=== PATIENT | female | born 1980 | race Caucasian/White ===

== ENCOUNTER 2018-03-23 07:15 | Inpatient (IN) | payer OTHER ==
[~2018-03-23] VITALS: Ht 149.9 cm; Wt 64.0 kg
[~2018-03-23 07:15] MED LIST: Ativan1 MG PO; CALCA500CH PO; CHLO25 PO; CIPR500 PO; CITA20 PO; DIPH50 PO; FOLI1 PO; Inderal 20 mg T20 MG PO; MULVITMIND PO; Nuvaring Vagin1 EACH VAG; PANT40 PO; Refresh Eye Dr1 EACH BOTHEYES; SPIR25 PO; THIA100 PO
[2018-03-23 07:58] LABS: BASOPHILS ABSOLUTE AUTO 0.04 K/mm3 (0.00-0.23); BASOPHILS PERCENT AUTO 1 % (0-2); EOSINOPHILS ABSOLUTE AUTO 0.05 K/mm3 (0.00-0.68); EOSINOPHILS PERCENT AUTO 1 % (0-6); Hematocrit 32.8 % (33.0-51.0); Hemoglobin 11.6 g/dL (11.5-16.0); IMMATURE GRAN ABSOLUTE AUTO 0.04 K/mm3 (0.00-0.10); IMMATURE GRAN PERCENT AUTO 1 % (0-1); LYMPHOCYTES ABSOLUTE AUTO 1.05 K/mm3 (0.84-5.20); LYMPHOCYTES PERCENT AUTO 16 % (21-46); MONOCYTES ABSOLUTE AUTO 0.49 K/mm3 (0.16-1.47); MONOCYTES PERCENT AUTO 8 % (4-13); Mean Corpuscular HGB 30.9 pg (26.0-34.0); Mean Corpuscular HGB Conc 35.4 g/dL (31.5-36.5); Mean Corpuscular Volume 87 fL (80-100); Mean Platelet Volume 9.8 fL (9.1-12.4); NEUTROPHILS PERCENT AUTO 74 % (41-73); NRBC ABSOLUTE 0.02 K/mm3 (0.00-0.02); NRBC Auto 0.3 /100 WBC (0.0-0.2); Platelet Count 73 K/mm3 (150-400); RDW Coefficient Variation 26.2 % (11.7-14.2); RDW Standard Deviation 80.7 fL (35.1-46.3); Red Blood Cell Count 3.76 M/mm3 (3.80-5.20); White Blood Cell Count 6.47 K/mm3 (4.00-11.30)
[2018-03-23 08:08] LABS: International Normalized Ratio 1.31; Prothrombin Time Results 13.3 Sec (9.7-11.5)
[2018-03-23 08:12] LABS: Alanine Aminotransfer (ALT/SGP 94 U/L (12-78); Albumin, Blood 2.3 g/dL (3.4-5.0); Albumin/Globulin Ratio 0.4 (0.8-1.8); Alk Phos 318 U/L (50-136); Anion Gap 12 mmol/L (6-16); Aspartate Aminotrans (AST/SGOT 553 U/L (12-37); Bilirubin, Total 13.7 mg/dL (0.1-1.0); Blood Urea Nitrogen 3 mg/dL (8-24); Bun/Creatinine Ratio 5.2 (12.0-20.0); CO2, Blood 25 mmol/L (21-32); Calcium, Blood 7.5 mg/dL (8.5-10.1); Chloride, Blood 102 mmol/L (98-108); Creatinine, Blood 0.57 mg/dL (0.40-1.00); Ethanol (Alcohol), Blood, Med 249 mg/dL; Globulin, Blood 5.6 g/dL (2.2-4.0); Glomerular Filtration Rate >60 (60-); Glucose, Blood 84 mg/dL (70-99); Magnesium, Blood 1.8 mg/dL (1.6-2.4); Potassium, Blood 3.4 mmol/L (3.5-5.5); Sodium, Blood 139 mmol/L (136-145); Total Protein, Blood 7.9 g/dL (6.4-8.2)
[2018-03-23 09:56] LABS: Blood, Urine Neg (Neg); Glucose Qualitative, Urine Neg (Neg); Ketones, Urine Neg (Neg); Leukocyte Esterase, Urine Neg (Neg); Nitrite, Urine Neg (Neg); Protein, Urine Neg (Neg); Urobilinogen, Urine 1+ (Normal); pH, Urine 6.5 (5.0-8.0)
[2018-03-23 10:12] LABS: Bilirubin, Urine 2+ (Neg)
[2018-03-23 10:13] LABS: Appearance, Urine Clear (Clear); Color, Urine Amber (P-Yellow)
[2018-03-23 10:15] LABS: U Amphetamine Screen Not Detected; U Barbituate Screen Not Detected; U Benzodiazapine Screen Not Detected; U Buprenorphine Screen Not Detected; U Cannabinoids Screen Not Detected; U Cocaine Screen Not Detected; U Methadone Screen Not Detected; U Methamphetamine Screen Not Detected; U Opiates Screen Not Detected; U Oxycodone Screen Not Detected; U Phencyclidine Screen Not Detected; U Propoxyphene Screen Not Detected
[2018-03-24 05:36] LABS: Hematocrit 28.7 % (33.0-51.0); Hemoglobin 9.9 g/dL (11.5-16.0); Mean Corpuscular HGB 30.5 pg (26.0-34.0); Mean Corpuscular HGB Conc 34.5 g/dL (31.5-36.5); Mean Corpuscular Volume 88 fL (80-100); Mean Platelet Volume 9.8 fL (9.1-12.4); Platelet Count 52 K/mm3 (150-400); RDW Coefficient Variation 26.3 % (11.7-14.2); RDW Standard Deviation 80.8 fL (35.1-46.3); Red Blood Cell Count 3.25 M/mm3 (3.80-5.20); White Blood Cell Count 4.26 K/mm3 (4.00-11.30)
[2018-03-24 06:02] LABS: Anion Gap 10 mmol/L (6-16); Blood Urea Nitrogen 4 mg/dL (8-24); CO2, Blood 24 mmol/L (21-32); Calcium, Blood 7.5 mg/dL (8.5-10.1); Chloride, Blood 103 mmol/L (98-108); Creatinine, Blood 0.57 mg/dL (0.40-1.00); Glomerular Filtration Rate >60 (60-); Glucose, Blood 81 mg/dL (70-99); Sodium, Blood 137 mmol/L (136-145)
[2018-03-25 05:44] LABS: Alanine Aminotransfer (ALT/SGP 64 U/L (12-78); Albumin, Blood 1.9 g/dL (3.4-5.0); Albumin/Globulin Ratio 0.4 (0.8-1.8); Alk Phos 259 U/L (50-136); Anion Gap 10 mmol/L (6-16); Aspartate Aminotrans (AST/SGOT 366 U/L (12-37); Bilirubin, Total 15.7 mg/dL (0.1-1.0); Blood Urea Nitrogen 3 mg/dL (8-24); Bun/Creatinine Ratio 5.5 (12.0-20.0); CO2, Blood 24 mmol/L (21-32); Calcium, Blood 7.9 mg/dL (8.5-10.1); Chloride, Blood 104 mmol/L (98-108); Creatinine, Blood 0.55 mg/dL (0.40-1.00); Globulin, Blood 4.8 g/dL (2.2-4.0); Glomerular Filtration Rate >60 (60-); Glucose, Blood 70 mg/dL (70-99); Potassium, Blood 3.3 mmol/L (3.5-5.5); Sodium, Blood 138 mmol/L (136-145); Total Protein, Blood 6.7 g/dL (6.4-8.2)
[2018-03-26 06:11] LABS: Anion Gap 8 mmol/L (6-16); Blood Urea Nitrogen 4 mg/dL (8-24); Bun/Creatinine Ratio 6.7 (12.0-20.0); CO2, Blood 24 mmol/L (21-32); Calcium, Blood 7.9 mg/dL (8.5-10.1); Chloride, Blood 107 mmol/L (98-108); Glomerular Filtration Rate >60 (60-); Glucose, Blood 81 mg/dL (70-99); Potassium, Blood 3.4 mmol/L (3.5-5.5); Sodium, Blood 139 mmol/L (136-145)
[2018-03-26] MEDS ORDERED: THERA M PLUS T1 EACH PO (11:33)
[2018-03-26] MEDS ORDERED: CHLO25 PO (11:33)
== END 2018-03-26 11:46 | disposition home or self-care (01) | DRG 897 ==
LOC: ER 07:15 → PCU 10:33 → MEDS 13:57 → ENPENDDIS 03-26 11:12 → MEDS 03-26 11:46
PROVIDERS: Emergency Medicine; Internal Medicine
DX: F10.239 Alcohol dependence with withdrawal, unspecified (principal); D69.6 Thrombocytopenia, unspecified; K70.30 Alcoholic cirrhosis of liver without ascites; Y90.8 Blood alcohol level of 240 mg/100 ml or more; E87.6 Hypokalemia; R79.89 Other specified abnormal findings of blood chemistry; Z66 Do not resuscitate
CPT/HCPCS: 36415; 71046; 76705; 80048; 80053; 81003; 82140; 83690; 83735; 85025; 85027; 85610; 96361; 96374; 99285-25; C9113; G0480; J2060; J3411; J3475; J7030; J7042

== ENCOUNTER → 2018-07-31 | Outpatient (CLI) | payer OTHER ==
[~2018-07-31] MED LIST changes: +CALCA400CH PO; +LACT10SY PO; +MIDO5 PO; +RIFA550T2 PO; +THERA M PLUS T1 EACH PO; +Verotin-Gr Cap1 EACH PO
[2018-07-31 14:56] LABS: Creatinine Urine 9.82 mg/dL (27.00-270.00)
[2018-07-31 15:00] LABS: Microalbumin, Urine Quant. <5.000 mg/L (0.000-20.000); Protein, Urine Quantitative <5.0 mg/dL (0.0-11.9)
== END | disposition home or self-care (01) ==
LOC: LAB SHORT 13:52 → LAB 13:52
PROVIDERS: Internal Medicine Nephrology
DX: E78.00 Pure hypercholesterolemia, unspecified (principal); E55.9 Vitamin D deficiency, unspecified; N25.81 Secondary hyperparathyroidism of renal origin; N18.2 Chronic kidney disease, stage 2 (mild); D63.1 Anemia in chronic kidney disease; D51.8 Other vitamin B12 deficiency anemias; D52.8 Other folate deficiency anemias; D50.9 Iron deficiency anemia, unspecified; R76.9 Abnormal immunological finding in serum, unspecified; R94.5 Abnormal results of liver function studies; R94.6 Abnormal results of thyroid function studies
CPT/HCPCS: 81050; 82043; 82570; 84156

== ENCOUNTER 2019-02-12 12:18 | Inpatient (IN) | payer OTHER ==
[~2019-02-12] VITALS: Ht 180.3 cm; Wt 59.6 kg
[~2019-02-12 12:18] MED LIST changes: +B-1100 MG PO; +Enulose10 GM/15 M PO; -LACT10SY PO
[2019-02-12 13:08] LABS: BASOPHILS ABSOLUTE AUTO 0.03 K/mm3 (0.00-0.23); BASOPHILS PERCENT AUTO 0 % (0-2); EOSINOPHILS ABSOLUTE AUTO 0.13 K/mm3 (0.00-0.68); EOSINOPHILS PERCENT AUTO 2 % (0-6); Hematocrit 28.2 % (33.0-51.0); Hemoglobin 9.5 g/dL (11.5-16.0); IMMATURE GRAN ABSOLUTE AUTO 0.04 K/mm3 (0.00-0.10); IMMATURE GRAN PERCENT AUTO 1 % (0-1); LYMPHOCYTES ABSOLUTE AUTO 1.01 K/mm3 (0.84-5.20); LYMPHOCYTES PERCENT AUTO 13 % (21-46); MONOCYTES ABSOLUTE AUTO 1.42 K/mm3 (0.16-1.47); MONOCYTES PERCENT AUTO 18 % (4-13); Mean Corpuscular HGB 33.6 pg (26.0-34.0); Mean Corpuscular HGB Conc 33.7 g/dL (31.5-36.5); Mean Corpuscular Volume 100 fL (80-100); Mean Platelet Volume 10.7 fL (9.1-12.4); NEUTROPHILS ABSOLUTE AUTO 5.43 K/mm3 (1.96-9.15); NEUTROPHILS PERCENT AUTO 67 % (41-73); Platelet Count 104 K/mm3 (150-400); RDW Coefficient Variation 14.1 % (11.7-14.2); RDW Standard Deviation 51.2 fL (35.1-46.3); Red Blood Cell Count 2.83 M/mm3 (3.80-5.20); White Blood Cell Count 8.06 K/mm3 (4.00-11.30)
[2019-02-12 13:22] LABS: Ethanol (Alcohol), Blood, Med <3 mg/dL
[2019-02-12 13:32] LABS: Alanine Aminotransfer (ALT/SGP 47 U/L (12-78); Albumin, Blood 2.6 g/dL (3.4-5.0); Albumin/Globulin Ratio 0.7 (0.8-1.8); Alk Phos 203 U/L (50-136); Anion Gap 9 mmol/L (6-16); Aspartate Aminotrans (AST/SGOT 113 U/L (12-37); Blood Urea Nitrogen 48 mg/dL (8-24); Bun/Creatinine Ratio 27.7 (12.0-20.0); CO2, Blood 25 mmol/L (21-32); Chloride, Blood 83 mmol/L (98-108); Creatinine, Blood 1.73 mg/dL (0.40-1.00); Globulin, Blood 3.9 g/dL (2.2-4.0); Glomerular Filtration Rate 35 (60-); Glucose, Blood 119 mg/dL (70-99); Potassium, Blood 4.6 mmol/L (3.5-5.5); Sodium, Blood 117 mmol/L (136-145); Total Protein, Blood 6.5 g/dL (6.4-8.2)
[2019-02-12 13:57] LABS: Source, Urine Clean Catch
[2019-02-12] MEDS ORDERED: TUMS500 MG PO (14:08)
[2019-02-12] MEDS ORDERED: Midodrine HCl10 MG PO (14:09)
[2019-02-12] MEDS ORDERED: MIDO5 PO (14:12)
[2019-02-12 14:22] LABS: Bilirubin, Urine Neg (Neg); Blood, Urine 1+ (Neg); Glucose Qualitative, Urine Neg (Neg); Ketones, Urine Neg (Neg); Leukocyte Esterase, Urine 2+ (Neg); Nitrite, Urine Neg (Neg); Protein, Urine Neg (Neg); Specific Gravity, Urine 1.005 (1.003-1.022); Urobilinogen, Urine NORM (Normal)
[2019-02-12 14:23] LABS: Appearance, Urine Clear (Clear); Color, Urine Yellow (P-Yellow)
[2019-02-12 14:27] LABS: Red Blood Cells, Urine 0-2 /hpf (0-2)
[2019-02-12 14:28] LABS: Squamous Epithelial Cells Mod /hpf (Few)
[2019-02-12 14:29] LABS: Bacteria Mod /hpf
--- NOTE | 2019-02-12 16:22 | NUR ---
PT ARRIVED TO ICU 5, WAS ABLE TO TRANSFER SELF TO BED. PT IS VERY TREMULOUS. SHE IS ORIENTED TO PERSON AND PLACE, KNEW THE MONTH AND YEAR ONLY. SHE IS VERY FORGETFUL AND ANXIOUS. SHE KEEPS REPEATING THINGS TO HERSELF BECAUSE SHE IS SCARED SHE IS GOING TO FORGET THEM. SHE ASKS FOR THE LIGHTS TO BE OFF THEN TURNS THEM RIGHT BACK ON AFTER THEY ARE TURNED OFF, BUT STILL SAYS SHE WANTS THEM OFF. HER PARENTS WERE AT THE BEDSIDE AND SHE REQUESTED THEY GO HOME FOR THE NIGHT. ADMIT COMPLETED BEFORE THEY WENT HOME. BED ALARM ON PT.
[2019-02-12 17:34] LABS: Bun/Creatinine Ratio 31.1 (12.0-20.0); Calcium, Blood 8.3 mg/dL (8.5-10.1); Creatinine, Blood 1.35 mg/dL (0.40-1.00); Potassium, Blood 3.7 mmol/L (3.5-5.5)
--- NOTE | 2019-02-12 18:49 | NUR ---
SHIFT SUMMARY: PT HAS CONTINUED TO BE VERY TREMULOUS WELL FIDGETY SINCE ARRIVAL. SHE IS STILL QUITE FORGETFUL AND REQUIRES FREQUENT REMINDERS. HER LUNGS ARE CLEAR, SR, BP STABLE. SHE IS EATING AND DRINKING. GETTING UP TO THE COMMODE TO VOID. NO OTHER REQUESTS FROM PT AT THIS TIME. CONTINUING TO MONITOR.
--- NOTE | 2019-02-12 21:14 | NUR ---
CARE ASSUMPTION PT ALERT TO SELF AND PLACE, DISORIENTED TO DATE AND TIME, UNABLE TO REMEMBER DATE AND TIME AFTER BEING REMINDED. PT STATES BEING SCARED ABOUT CURRENT HEALTH STATE AND INABILITY TO REMEMBER THINGS. 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 PT TEARFUL, EMOTIONAL, AND SCARED. PT REQUESTING VALIUM STATING "I JUST WANT TO BE KNOCKED OUT. I CAN'T FUNCTION LIKE THIS. I FEEL LIKE I NEED TO BE LOCKED DOWN. SOMEONE NEEDS TO WATCH ME. DON'T LET ME OUT OF HERE." TIME SPENT AT PT BEDSIDE COMFORTING PT AND DISCUSSING CURRENT ILLNESS. BP HYPOTENSIVE, MEDICATING PER EMAR. OTHERWISE VSS. LUNG SOUNDS CLEAR, SPO2 > 92% ON RA. MONITOR SHOWS NSR/ST, HR 90-110. WILL CONTINUE TO MONITOR AND PROVIDE CARE.
[2019-02-13 03:39] LABS: Albumin/Globulin Ratio 0.7 (0.8-1.8); Bun/Creatinine Ratio 35.3 (12.0-20.0); Calcium, Blood 8.2 mg/dL (8.5-10.1); Creatinine, Blood 1.16 mg/dL (0.40-1.00); Globulin, Blood 2.9 g/dL (2.2-4.0); Potassium, Blood 4.3 mmol/L (3.5-5.5); Total Protein, Blood 4.9 g/dL (6.4-8.2)
--- NOTE | 2019-02-13 06:22 | NUR ---
SHIFT SUMMARY PT MENTATION IMPROVING. PT ALERT & ORIENTED TO SELF AND LOCATION, STILL REQUIRING REMINDERS TO DATE AND TIME. PT CALM THIS MORNING, STATING "I FEEL LESS SPASTIC." TREMORS ARE NOTED TO HAVE LESSENED. PT EMOTIONAL T/O FIRST PORTION OF SHIFT, REQUESTING TO BE "LOCKED DOWN". SEE PREVIOUS NOTE. BP CONTINUES TO BE LOW, PT STATES BP NORMALLY LOW AT BASELINE. MEDICATION PER EMAR. MONITOR SHOWS NSR/ST, HR 90-110. LUNG SOUNDS CLEAR, SPO2 > 92% ON RA. WILL CONTINUE TO MONITOR AND PROVIDE CARE UNTIL REPORT OFF TO DAY SHIFT RN.
--- NOTE | 2019-02-13 09:44 | NUR ---
RECEIVED REPORT AND ASSUMED CARE OF PATIENT. SHE IS SITTING UP IN BED AND HAVING SOME ANXIETY. PT CAN STATE THE DATE AND IS AWARE OF THE SITUATION AND WHERE SHE IS AT THIS TIME. WILL CONTINUE TO MONITOR AND FOLLOW ORDERS FOR THIS PATIENT. HAS ORDERS TO TRANSFER PT TO MEDICAL FLOOR. WILL GIVE REPORT TO BAL DAWKINS AND TRANSFER PATIENT
--- NOTE | 2019-02-13 11:40 | NUR ---
TRANSFER NOTE RECEIVED HANDOFF REPORT FROM SCIENTIFIC PHOTOGRAPHER MARYJANE. 38 YR OLD FEMALE ADMITTED FOR HYPONATREMIA. FULL CODE. TREMOR AT BASELINE. SEIZURE PRECAUTIONS. RUNS HYPOTENSIVE. HX: ETOH ABUSE (QUIT 05/26), SEIZURES, STEROID INDUCED DIABETES, END STAGE LIVER DISEASE/CIRRHOSIS, AMS. INDEPENDENT IN ROOM, ROOM AIR. SCD'S IN PLACE FOR DVT PREVENTION. REGULAR DIET. PERIODS OF CONFUSION AND ANXIETY. A&O X4 ALL OTHER TIMES. HAS VERBALLY AGREED TO LIMIT HER FLUID INTAKE. POSSIBLE PLAN FOR A HIDA SCAN, I AM AWAITING ORDERS (NPO? TIME?). PT TRANSFERED TO FLOOR WNL. ORIENTED TO UNIT. CALL BUTTON WITHIN REACH.
--- NOTE | 2019-02-13 17:28 | NUR ---
SHIFT SUMMARY 38 YR OLD FEMALE ADMITTED FOR HYPONATREMIA. FULL CODE. CAME TO MED FLOOR FROM ICU TODAY. RUNS HYPOTENSIVE. REGULAR DIET. SCD'S IN PLACE. TREMORS AT BASELINE. SEIZURE PRECAUTIONS IN PLACE. 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 AMS. ROOM AIR. INDEPENDENT IN ROOM. EMOTIONAL AT TIMES. HX:CONFUSION AT ADMIT. SCHEDULED TO HAVE A HIDA SCAN ON WEDNESDAY. PT NEEDS TO BE NPO FOR 6 HRS BEFORE THIS PROCEDURE.
[2019-02-14 05:16] LABS: Alanine Aminotransfer (ALT/SGP 35 U/L (12-78); Albumin, Blood 1.9 g/dL (3.4-5.0); Albumin/Globulin Ratio 0.7 (0.8-1.8); Alk Phos 156 U/L (50-136); Anion Gap 6 mmol/L (6-16); Aspartate Aminotrans (AST/SGOT 73 U/L (12-37); Bilirubin, Total 8.1 mg/dL (0.1-1.0); Blood Urea Nitrogen 28 mg/dL (8-24); Bun/Creatinine Ratio 29.4 (12.0-20.0); CO2, Blood 21 mmol/L (21-32); Calcium, Blood 8.5 mg/dL (8.5-10.1); Chloride, Blood 108 mmol/L (98-108); Creatinine, Blood 0.95 mg/dL (0.40-1.00); Globulin, Blood 2.9 g/dL (2.2-4.0); Glomerular Filtration Rate >60 (60-); Glucose, Blood 124 mg/dL (70-99); Sodium, Blood 135 mmol/L (136-145); Total Protein, Blood 4.8 g/dL (6.4-8.2)
--- NOTE | 2019-02-14 07:50 | NUR ---
02/14/19 0630 AWAKE AND STATES SHE SLEPT WELL. VITALS STABLE. PT HAVING SOME MEMORY ISSUES TO CURRENT EVENTS BUT COOPERATIVE WITH CARE. PT DRINKING PLENTY OF FLUIDS AND ENCOURAGED TO DRINK LESS TO PREVENT SODIUM LOSS. STATES "OKAY" BUT THEN ASKS FOR MORE DRINKS.
--- NOTE | 2019-02-14 13:38 | NUR ---
[facility] initial visit: Met Rashmi, her mom, and her Aunt at bedside. Rashmi appears jaundiced. She is talkative and pleasant. She tells me she is here because "my sodium is outta whack." Her mom appears physically worn out. All tell me that Rashmi will get better. No concerns presented. Provided prayer for healing. I will remain available.
--- NOTE | 2019-02-14 16:54 | NUR ---
SHIFT SUMMARY 38 YR OLD FEMALE ADMITTED FOR HYPONATREMIA. FULL CODE. WILL UNDERGO A HIDA SCAN TOMORROW (SHE MUST BE NPO 6 HRS PRIOR) TO CHECK THE GALLBLADDER. INDEPENDENT IN ROOM A&O X4. HYPOTENSIVE. WAS ETOH, QUIT 05/26 IN THE HOPES OF GETTING A LIVER TRANSPLANT. PLAN IS FOR DC HOME AFTER HIDA SCAN, IF SCAN IS CLEAR. ROOM AIR. SHE HAS BEEN ASKED TO SELF-LIMIT HER FLUID INTAKE TO AVOID HYPONATREMIA. APPEARS JAUNDICED. HX: CIRRHOSIS, SEIZURES, DM2-STEROIDS.
--- NOTE | 2019-02-14 23:42 | NUR ---
02/14/191954 VERY ANXIOUS THIS EVENEING. MANY QUESTIONS FOR MD BUT "FORGOT" TO ASK WHEN HE CAME INTO SEE HER TODAY. ENCOURAGED TO WRITE QUESTIONS DOWN ON HER PAPER PAD FOR TOMORROW. REMINDED HER ABOUT BEING NPO AFTER 3 AM TOMORROW. UNDERSTANDS THAT NPO MEANS NO FLUIDS/FOOD OR ANYTHING ORALLY. AWARE THAT SHE WILL BE HAVING A HIDA SCAN ABOUT 9 AM.
--- NOTE | 2019-02-15 03:21 | NUR ---
02/15/19 0300 PT NPO FOR HIDA SCAN. ALL DRINKS/FLUIDS REMOVED. PT REMINDED ABOUT SCAN AND NPO.
[2019-02-15] MEDS ORDERED: SODCHL1 PO (13:38)
--- NOTE | 2019-02-15 14:39 | NUR ---
PT DISCHARGED 1400 WITH INSTRUCTIONS TO PT AND FAMILY CARING FOR HER. WENT OVER MEDICATION REGIMINE. DC'D IV'S, W/C ESCORT OUT TO RIDE. FORGOT HOME MEDICATION, CALLED FAMILY, THEY WILL COME AND RESEARCH AND EVALUATION ANALYST AT PHARMACY.
== END 2019-02-15 14:14 | disposition home or self-care (01) | DRG 640 ==
LOC: ER 12:18 → ICUW 14:28 → ICUE 14:51 → MEDS 15:34 → ICUE 02-13 07:52 → MEDS 02-13 10:07
PROVIDERS: Emergency Medicine; ADMIT Hospitalist
DX: E87.1 Hypo-osmolality and hyponatremia (principal); G92 Toxic encephalopathy; K76.6 Portal hypertension; N17.9 Acute kidney failure, unspecified; K70.30 Alcoholic cirrhosis of liver without ascites; F10.11 Alcohol abuse, in remission; E80.6 Other disorders of bilirubin metabolism; I10 Essential (primary) hypertension; Z87.891 Personal history of nicotine dependence; Z79.899 Other long term (current) drug therapy
CPT/HCPCS: 36415; 76705; 78226; 80048; 80053; 81001; 82140; 82728; 83690; 85025; 87077; 87086; 87186; 93005; 93010; 96360; 99285-25; A9537; G0480; J1650; J7030

== ENCOUNTER 2019-03-16 23:15 | Inpatient (IN) | payer OTHER ==
[~2019-03-16] VITALS: Ht 149.9 cm; Wt 54.6 kg
[~2019-03-16 23:15] MED LIST changes: +Midodrine HCl10 MG PO; +SODCHL1 PO; +TUMS500 MG PO
[2019-03-17 00:32] LABS: BASOPHILS ABSOLUTE AUTO 0.03 K/mm3 (0.00-0.23); BASOPHILS PERCENT AUTO 1 % (0-2); EOSINOPHILS ABSOLUTE AUTO 0.11 K/mm3 (0.00-0.68); EOSINOPHILS PERCENT AUTO 2 % (0-6); Hematocrit 33.3 % (33.0-51.0); IMMATURE GRAN ABSOLUTE AUTO 0.03 K/mm3 (0.00-0.10); IMMATURE GRAN PERCENT AUTO 1 % (0-1); LYMPHOCYTES PERCENT AUTO 13 % (21-46); MONOCYTES ABSOLUTE AUTO 0.75 K/mm3 (0.16-1.47); MONOCYTES PERCENT AUTO 12 % (4-13); Mean Corpuscular HGB 33.4 pg (26.0-34.0); Mean Corpuscular Volume 101 fL (80-100); Mean Platelet Volume 11.3 fL (9.1-12.4); NEUTROPHILS ABSOLUTE AUTO 4.53 K/mm3 (1.96-9.15); NEUTROPHILS PERCENT AUTO 72 % (41-73); Platelet Count 105 K/mm3 (150-400); RDW Coefficient Variation 17.9 % (11.7-14.2); RDW Standard Deviation 64.2 fL (35.1-46.3); Red Blood Cell Count 3.29 M/mm3 (3.80-5.20); White Blood Cell Count 6.25 K/mm3 (4.00-11.30)
[2019-03-17 00:49] LABS: Albumin, Blood 2.6 g/dL (3.4-5.0); Albumin/Globulin Ratio 0.6 (0.8-1.8); Bilirubin, Total 7.7 mg/dL (0.1-1.0); Bun/Creatinine Ratio 24.7 (12.0-20.0); Calcium, Blood 8.9 mg/dL (8.5-10.1); Creatinine, Blood 1.62 mg/dL (0.40-1.00); Globulin, Blood 4.5 g/dL (2.2-4.0); Potassium, Blood 4.4 mmol/L (3.5-5.5); Total Protein, Blood 7.1 g/dL (6.4-8.2)
[2019-03-17 10:54] LABS: BASOPHILS ABSOLUTE AUTO 0.05 K/mm3 (0.00-0.23); BASOPHILS PERCENT AUTO 1 % (0-2); EOSINOPHILS ABSOLUTE AUTO 0.07 K/mm3 (0.00-0.68); EOSINOPHILS PERCENT AUTO 1 % (0-6); Hematocrit 35.4 % (33.0-51.0); Hemoglobin 11.6 g/dL (11.5-16.0); IMMATURE GRAN ABSOLUTE AUTO 0.03 K/mm3 (0.00-0.10); IMMATURE GRAN PERCENT AUTO 0 % (0-1); LYMPHOCYTES ABSOLUTE AUTO 0.65 K/mm3 (0.84-5.20); LYMPHOCYTES PERCENT AUTO 7 % (21-46); MONOCYTES ABSOLUTE AUTO 1.15 K/mm3 (0.16-1.47); MONOCYTES PERCENT AUTO 12 % (4-13); Mean Corpuscular HGB Conc 32.8 g/dL (31.5-36.5); Mean Platelet Volume 10.9 fL (9.1-12.4); NEUTROPHILS PERCENT AUTO 79 % (41-73); Platelet Count 129 K/mm3 (150-400); RDW Coefficient Variation 18.1 % (11.7-14.2); RDW Standard Deviation 66.4 fL (35.1-46.3); Red Blood Cell Count 3.41 M/mm3 (3.80-5.20); White Blood Cell Count 9.35 K/mm3 (4.00-11.30)
[2019-03-17 10:55] LABS: Mean Corpuscular Volume 104 fL (80-100)
--- NOTE | 2019-03-17 10:55 | NUR ---
FAMILY HERE TO VISIT AND REPORTS PATIENT IS AT HER BASELINE AT THIS TIME REGARDING ORIENTATION. FAMILY REPORTS PATIENT IS CONCERNED THAT SHE IS ON LIVER TRANSPLANT ISSUE AND THAT DUE TO HER CURRENT INJURY THE TRANSPLANT PROCESS IS BEING DELAYED. PATIENT REPEATS QUESTIONS REGARDING WHY SHE IS IN HOSPITAL AND STATES THAT NO ONE HAS "TOLD ME ANYTHING". PATIENT TEARFUL AT TIMES. DISCUSSED WITH PATIENT AND FAMILY CURRENT ORDERS AND PLAN OF CARE
[2019-03-17 11:20] LABS: International Normalized Ratio 1.64; Prothrombin Time Results 16.6 Sec (9.7-11.5)
--- NOTE | 2019-03-17 13:09 | NUR ---
Multiple attempts to see pt proved unsuccessful. Spoke with pt's RN. Pt has had some paranoia. No family appear to be present at this time. I will remain available.
--- NOTE | 2019-03-17 13:15 | NUR ---
DR SOTOMAYOR HERE AND NEW SPLINT APPLIED TO LEFT LEG. LEFT ANKLE SWOLLEN AT JOINT. [id number] DR LOPEZ PER PATIENT, PATIENTS MOTHER AND PATIENTS FATHER WHO ALL STATE PATIENT WISHES TO BE DNR STATUS. DNR ORDERS RECEIVED
--- NOTE | 2019-03-17 13:21 | NUR ---
DNR PURPLE DNR WRISTBAND APPLIED. PATIENT GIVEN MORPHINE SULFATE 4 MG IV PRIOR TO APPLICATION OF SPLINT
--- NOTE | 2019-03-17 15:05 | NUR ---
Pt was sitting up in bed. Parents were present. They discuss the state of their daughter and the possible upcoming surgery. Pt is grateful she was able to eat lunch. She states, "I'm full now." Verbal prayer was offered for the pt and family. I will remain available.
--- NOTE | 2019-03-17 17:59 | NUR ---
PATIENT ORIENTED TO PERSON AND PLACES. PATIENT CONVERSATION AND COMMENTS THAT DO NOT APPLY TO THE CURRENT CONVERSATION GOING ON IN THE ROOM, PATIENT COOPERSTIVE. PATIENT, AT TIMES, HAS TREMORS OF THE EXTREMITIES AND FACIAL GRIMACES THAT FAMILY STATES IS NORMAL FOR HER. PATIENT HAS FACIAL PAIN SCORE OF 2-4 OTHER THAN SEVERE ACUTE PAIN WHEN NEW SPLINT WAS BEING APPLIED. PATIENT IS AWAITING TRANSFER TO [facility] WHEN TRANSFER ARRANGEMENTS ARE COMPLETE- PATIENT AND HER PARENTS AWARE OF TRANSFER PLANS. LEFT FOOT WARM, PINK AND PATIENT DENIES NUMBNESS AND TINGLING
--- NOTE | 2019-03-17 19:22 | NUR ---
Initial Visit: Palliative Care Consult for Advanced Care Planning. Pt is resting in bed and does not repond verbally. She keeps her eyes closed for most of the visit. Pt's mother is present during visit. Engaged in therapeutic discussion regarding AD/POLST. Pt's mother reports Pt has a POLST completed at home on the refrigerator. Requested for her to bring in copy for medical records. Listened as Pt's mother discusses plan for Pt to be transfered to [facility]. She is hopeful when Pt receives surgery that the transplant team can finish required testing for candidacy. She states they have 3 more tests to perform beform determination. Educated mother on options if plan falls through including the option for hospice. Mother reports they are not ready to consider hospice at this time. Validated concerns. No other concerns reported at this time. Palliative Care will remain available.
--- NOTE | 2019-03-18 01:33 | NUR ---
38 YEAR OLD WITH CIRRHOSIS AND PLACEMENT PENDING ON LIVER TRANSPLANT LIST AT [facility] FELL AT HOME AND HAS LT TIB FIB FX WHICH HAS SOFT SPLINT WHICH WAS CHANGED YESTERDAY BY DR ANDERSON. PT HIGH RISK DUE TO LIVER FUNCTION FOR SURGICAL INTERVENTION. PT TO TRANSFER TO [facility] WHERE THEY ARE FAMILAIR WITH HER MEDICAL CONDITIONS. COBRA TRANSDFER PENDING BED AVAILABLE AT [facility]. PARENTS WERE IN AND SUPPORTIVE AWARE OF PENDING TRANSFER. PT IS ALERT CONFUSED, SPEECH NONSENSICAL INAPPROPRIATE. ACCORDING TO REPORT AND NOTES ABOUT BASELINE CONFUSION.COOPERATIVE WITH MEDICATIONS. ON LACTULOSE AND 3 MED LOOSE BROWN ORANGE STOOLS THIS SHIFT. She set off bed alarm x 1 needing to toilet. Does not use call higgins. Continues on fall precautions, at risk for further injury.
--- NOTE | 2019-03-18 02:54 | NUR ---
[facility] called at 2 am to report a bed was ready to transport PT to 9K room 19 bed 1 and [facility] transport called to verify they would transport around 0315 to [facility]. attempted to contact Father and Mother and left message to call for both. They had requested transfer to [facility] where PT was being treated for liver failure. PT is alert confused but currently stable. She has not been using call higgins and continues fall risk. Called report to Angela SELBY on 9K for room 19 bed 1. Transfer packet ready and PT being transferred due to liver failure with lt tib fib fracture. Await transport. Scheduling Agent Tiffanie quintero to assist with transfer packet. Will continue to try to contact zelda who were arranging transport to [place] to [facility].
--- NOTE | 2019-03-18 03:47 | NUR ---
PT alert confused and near baseline confusion. PT's Parents not reachable, have left a message on Mother and Father's answering service to call floor. [facility] transport took PT off floor at 0330 AM Personal belongings sent with PT incuding cell phone and pts own medication. VSS.
--- NOTE | 2019-03-18 05:19 | NUR ---
Notification of PT's Mother Rashmi that PT transferred to [facility] at 0332 this AM. Sent cellphone and PT"s own med with PT. She will inform PT's Father and they plan to leave to [facility] soon. Gave room and floor number as well as phone number of admitting floor.
== END 2019-03-18 03:32 | disposition short-term general hospital (02) | DRG 562 ==
LOC: ER 23:15 → SURS 03-17 03:06
PROVIDERS: Emergency Medicine; Orthopaedic Surgery; ADMIT Internal Medicine
PROC: 2W3RX1Z Immobilization of Left Lower Leg using Splint (ICD-10-PCS; principal; 2019-03-17)
DX: S82.302A Unspecified fracture of lower end of left tibia, initial encounter for closed fracture (principal); G92 Toxic encephalopathy; E87.1 Hypo-osmolality and hyponatremia; S82.402A Unspecified fracture of shaft of left fibula, initial encounter for closed fracture; W19.XXXA Unspecified fall, initial encounter; Y92.002 Bathroom of unspecified non-institutional (private) residence as the place of occurrence of the external cause; E80.6 Other disorders of bilirubin metabolism; K70.30 Alcoholic cirrhosis of liver without ascites; F10.21 Alcohol dependence, in remission; I12.9 Hypertensive chronic kidney disease with stage 1 through stage 4 chronic kidney disease, or unspecified chronic kidney disease; E11.22 Type 2 diabetes mellitus with diabetic chronic kidney disease; Z87.891 Personal history of nicotine dependence; Z66 Do not resuscitate; N18.3 Chronic kidney disease, stage 3 (moderate); D63.1 Anemia in chronic kidney disease
CPT/HCPCS: 27810; 36415; 73590; 73610; 73700; 76377; 80053; 82140; 85025; 85610; 85730; 93005; 93010; 96374-59; 96375-59; 99285-25; G0480; J1170; J2270; J2405; J7030

== ENCOUNTER 2019-04-24 13:15 | Observation (INO) | payer OTHER ==
[~2019-04-24] VITALS: Ht 149.9 cm; Wt 56.2 kg
[2019-04-24] MEDS ORDERED: ONDA4ODT PO (16:37)
[2019-04-24] MEDS ORDERED: Bumetanide1 MG PO (16:38)
--- NOTE | 2019-04-24 19:40 | NUR ---
REPORT RECIEVED FROM HAYDEN CORONADO RN AND AWAITING PT T/F TO ROOM 356.
--- NOTE | 2019-04-24 20:10 | NUR ---
PT T/F TO ROOM 356 AT 1999. PT VERY DROWSY BUT WAS ORIENTED TO ROOM AND CALL SYSTEM. SHE DENIED NEEDS/COMPLAINTS UPON T/F. PLAN TO COMPLETE ADMISSION PAPERWORK MOMENTARILY.
--- NOTE | 2019-04-24 22:10 | NUR ---
PT VERY DROWSY/SOMNOLENT. SHE IS WAKEFUL BRIEFLY TO ANSWER Q'S W/SUCCINT WORDS/PHRASES BUT THEN FALLS IMMEDIATELY BACK TO SLEEP. OCCASIONALLY IT TAKES MULTI ATTEMPTS TO SUCCESSFULLY ROUSE HER BUT SHE IS A/OX4 WA. PT HAD ATIVAN IN ER AND THIS IS LIKELY CONTRIBUTING TO DECREASED LOC. SHE IS NOTICABLY WEAK W/INVOLUNTARY MUSCULAR TWITCHING OF HER HANDS/ARMS. PT LACKS MOTIVATION TO REPOSITION SELF BUT IS ABLE TO DO SO. SHE CURRENTLY REFUSES TO ALLOW STAFF TO REMOVE JEANS, SHOES AND SHIRT WHILE IN BED. SHE HAS A BRACE INTACT TO HER LLE FROM A REPORTED "RECENT L.TIBIAL FX". SHE DENIES PAIN/COMPLAINTS OTHER THEN PAIN AT IV SITE RELATED TO K-RIDER INFUSION WHICH IS DILUTED W/NS AND RUNNING AT HALF THE RX'D RATE. IV INSERTION SITE LOOKS WNL. PT IS VERY JAUNDICED W/YELLOW SCLERA AND PETECHIAE TO HER CHEST. FACE APPEARS PUFFY AND ABDO IS DISTENDED. BRUISE AND BANDAID WERE OBSERVED TO L.CW WHERE PT REPORTED RECENT DIALYSIS CATH REMOVAL. VSS AND MEDS RECIEVED OTHER THEN HOME MED WHICH WASN'T AVAILABLE. WCTM. CALL LIGHT IN REACH AND BED ALARM ON FOR PT SAFETY.
--- NOTE | 2019-04-24 23:20 | NUR ---
JULIO HOSE REFUSAL PT WAS DIFFICULT TO AROUSE, PT EDUCATED ABOUT ORDER FOR JULIO HOSE STOCKINGS. PT REFUSES AT THIS TIME. STATES "NO RIGHT NOW". PT ASKED IF WE COULD PLACE THE JULIO HOSE NEXT TIME SHE WOKE UP. PT NODDED HEAD AND RESUMED SLEEPING. WILL REPORT TO PRIMARY RN.
[2019-04-25 04:57] LABS: Anion Gap 8 mmol/L (6-16); Blood Urea Nitrogen 20 mg/dL (8-24); Bun/Creatinine Ratio 25.8 (12.0-20.0); CO2, Blood 37 mmol/L (21-32); Calcium, Blood 8.4 mg/dL (8.5-10.1); Chloride, Blood 93 mmol/L (98-108); Creatinine, Blood 0.78 mg/dL (0.40-1.00); Glomerular Filtration Rate >60 (60-); Glucose, Blood 154 mg/dL (70-99); Magnesium, Blood 1.8 mg/dL (1.6-2.4); Potassium, Blood 2.8 mmol/L (3.5-5.5); Sodium, Blood 138 mmol/L (136-145)
--- NOTE | 2019-04-25 05:33 | NUR ---
SUMMARY: PT BEGAN SHIFT VERY DROWSY/SOMNOLENT, WITHDRAWN AND LACKING INTERACTION OR MOTIVATION TO PARTICIPATE IN CARE. SHE'D RECIEVED ATIVAN IN ER AND THIS WAS LIKELY A CONTRIBUTING FACTOR BECAUSE PT BECAME MUCH MORE ALERT SHIFT PROGRESSED AND WAS BETTER ABLE TO SPECIFY NEEDS. SHE AMBULATED W/SBA TO TOILET AND REQUESTED MULTIPLE CRANBERRY JUICES. BED ALARM ON FOR WEAKNESS AND PT SAFETY. SHE'S A/OX4 BUT SEEMS FORGETFULL TO LIMITATIONS. MUSCULAR TWITCHING OF BUE'S OBSERVED. PT APPEARS JAUNDICED W/YELLOW SCLERAS AND A PUFFY/SWOLLEN APPPEARING FACE. L.LEG BRACE REMAINS INTACT POST TIBIAL FX AND PT REFUSED JULIO HOSE APPLICATION OR REMOVAL OF CLOTHES/SHOE WHILE IN BED. SHE CLAIMS TO HAVE HAD A RECENT DIALYSIS CATH REMOVED FROM HER L.CW W/BRUISING OBSERVED AND A BANDAID IN PLACE. K-RIDER WAS COMPLETED THIS SHIFT THEN PT SL. AM LABS PENDING. NO ACUTE CHANGES, VSS AND AFEBRILE. PT IS NSR AT 90'S BPM. WCTM/REPORT TO DAY RN.
--- NOTE | 2019-04-25 06:34 | NUR ---
ALERTED TO K=2.8 THIS AM (IMPROVED FROM 2.1) W/40MEQ K-RIDER RX'D.
[2019-04-25] MEDS ORDERED: Bumetanide2 MG PO (15:43)
[2019-04-25] MEDS ORDERED: POTCHL20ER PO (15:51)
--- NOTE | 2019-04-25 17:12 | NUR ---
1700 PT DISHCARGED HOME VIA PERSONAL VEHICLE ACCOMPANIED AND DRIVEN BY MOTHER. IV REMOVED. D/C PAPERWORK REVIEWED WITH PT AND COPY PROVIDED. NEW RX FAXED TO [facility] PER PT REQUEST. K 4.4 POST INTERVENTIONS PRIOR TO D/C. NO NEW CHANGES OR CONCERNS.
== END 2019-04-25 17:05 | disposition home or self-care (01) ==
LOC: ER 13:15 → MEDS 13:16
PROVIDERS: ADMIT Internal Medicine
DX: E87.6 Hypokalemia (principal); T50.2X5A Adverse effect of carbonic-anhydrase inhibitors, benzothiadiazides and other diuretics, initial encounter; K70.30 Alcoholic cirrhosis of liver without ascites; K76.6 Portal hypertension; I85.10 Secondary esophageal varices without bleeding; D68.9 Coagulation defect, unspecified; D69.6 Thrombocytopenia, unspecified; R60.1 Generalized edema; I10 Essential (primary) hypertension; E11.9 Type 2 diabetes mellitus without complications; D63.8 Anemia in other chronic diseases classified elsewhere; Z79.899 Other long term (current) drug therapy
CPT/HCPCS: 36415; 80048; 80053; 83735; 84132; 85025; 85610; 93005; 93010; 96365; 96366; 96368; 96375; 96376; 99284-25; G0378; J2060; J3475; J3480; J7030

== ENCOUNTER 2019-07-11 07:19 | Day surgery (SDC) | payer OTHER ==
[~2019-07-11] VITALS: Wt 58.9 kg
[~2019-07-11 07:19] MED LIST changes: +Bumetanide1 MG PO; +ONDA4ODT PO; +POTCHL20ER PO
--- NOTE | 2019-07-11 08:48 | NUR ---
Ambulatory in Day Surgery History, Chart, Medications and Allergies reviewed before start of procedure.Lungs clear T/O to Auscultation. Patient confirms NPO status and agrees with scheduled surgery. Pre-Op teaching done. Pt verbalizes understanding. THE PATIENT WAS ADMITTED AT 0735 FOR A CTA.
--- NOTE | 2019-07-11 08:51 | NUR ---
Patient up to Ambulate independently. Gait steady. Discharge instructions reviewed with patient. Patient verbalizes understanding. Copy given to patient to take home.
--- NOTE | 2019-07-14 07:00 | NUR ---
07/14/19 0700 Shyanne Cherry PROCEDURE EDITED FOR PURPOSES OF VERIFICATION.
== END 2019-07-11 08:54 | disposition home or self-care (01) ==
LOC: CT 07:19 → ORD 07:19 → CT 08:00 → ORD 08:54
DX: I42.9 Cardiomyopathy, unspecified (principal); I10 Essential (primary) hypertension; I34.0 Nonrheumatic mitral (valve) insufficiency; I27.20 Pulmonary hypertension, unspecified; K74.60 Unspecified cirrhosis of liver; D64.9 Anemia, unspecified; F10.21 Alcohol dependence, in remission; F32.9 Major depressive disorder, single episode, unspecified; Z79.899 Other long term (current) drug therapy
CPT/HCPCS: 75574; Q9967

== ENCOUNTER 2019-08-07 10:55 | Emergency (ER) | payer OTHER ==
[~2019-08-07] VITALS: Ht 152.4 cm; Wt 56.2 kg
[2019-08-07 11:58] LABS: BASOPHILS ABSOLUTE AUTO 0.04 K/mm3 (0.00-0.23); BASOPHILS PERCENT AUTO 1 % (0-2); EOSINOPHILS ABSOLUTE AUTO 0.11 K/mm3 (0.00-0.68); EOSINOPHILS PERCENT AUTO 2 % (0-6); Hematocrit 34.2 % (33.0-51.0); Hemoglobin 10.3 g/dL (11.5-16.0); IMMATURE GRAN ABSOLUTE AUTO 0.03 K/mm3 (0.00-0.10); IMMATURE GRAN PERCENT AUTO 1 % (0-1); LYMPHOCYTES ABSOLUTE AUTO 0.45 K/mm3 (0.84-5.20); LYMPHOCYTES PERCENT AUTO 9 % (21-46); MONOCYTES ABSOLUTE AUTO 0.48 K/mm3 (0.16-1.47); MONOCYTES PERCENT AUTO 10 % (4-13); Mean Corpuscular HGB 30.4 pg (26.0-34.0); Mean Corpuscular HGB Conc 30.1 g/dL (31.5-36.5); Mean Corpuscular Volume 101 fL (80-100); NEUTROPHILS ABSOLUTE AUTO 3.84 K/mm3 (1.96-9.15); NEUTROPHILS PERCENT AUTO 78 % (41-73); Platelet Count 93 K/mm3 (150-400); RDW Coefficient Variation 15.2 % (11.7-14.2); RDW Standard Deviation 56.4 fL (35.1-46.3); Red Blood Cell Count 3.39 M/mm3 (3.80-5.20); White Blood Cell Count 4.95 K/mm3 (4.00-11.30)
[2019-08-07 12:11] LABS: Base Excess Venous -2.1 mmol/L; Bicarbonate Venous 22.2 mmol/L (24.0-30.0); PCO2 Venous 50.5 mmHg (38-42); PO2 Venous 46.5 mmHg (38-42); pH Blood Venous 7.29 (7.34-7.37)
[2019-08-07 12:13] LABS: Source, Urine Clean Catch
[2019-08-07 12:17] LABS: Bilirubin, Urine Neg (Neg); Blood, Urine Neg (Neg); Glucose Qualitative, Urine 4+ (Neg); Ketones, Urine Neg (Neg); Leukocyte Esterase, Urine 1+ (Neg); Nitrite, Urine Neg (Neg); Protein, Urine Neg (Neg); Specific Gravity, Urine 1.005 (1.003-1.022); Urobilinogen, Urine NORM (Normal)
[2019-08-07 12:20] LABS: Beta-hydroxybutyrate 1.3 mg/dL (0.2-2.8)
[2019-08-07 12:26] LABS: Appearance, Urine Clear (Clear); Color, Urine Yellow (P-Yellow)
[2019-08-07 12:27] LABS: Red Blood Cells, Urine 0-2 /hpf (0-2)
[2019-08-07 12:28] LABS: Bacteria Few /hpf; Squamous Epithelial Cells Few /hpf (Few); Yeast/Fungi Urine Few /hpf
[2019-08-07 12:29] LABS: Albumin, Blood 2.1 g/dL (3.4-5.0); Albumin/Globulin Ratio 0.5 (0.8-1.8); Bilirubin, Total 7.6 mg/dL (0.1-1.0); Bun/Creatinine Ratio 8.3 (12.0-20.0); Calcium, Blood 8.7 mg/dL (8.5-10.1); Creatinine, Blood 1.09 mg/dL (0.40-1.00); Globulin, Blood 4.6 g/dL (2.2-4.0); Potassium, Blood 3.5 mmol/L (3.5-5.5); Total Protein, Blood 6.7 g/dL (6.4-8.2)
[2019-08-07] MEDS ORDERED: CARV3.125 PO (13:11)
[2019-08-07 14:22] LABS: Glucose, Blood 667 mg/dL (70-99)
[2019-08-07] MEDS ORDERED: METER-CHECK1 EACH TOP (14:31)
[2019-08-07] MEDS ORDERED: Novolin R100 UNIT/M SC (14:31)
[2019-08-07] MEDS ORDERED: [UNRECOGNIZED DRUG - OTHER] SC (14:31)
[2019-08-07 15:25] LABS: Calcium, Ionized (POC) 1.25 mmol/L (1.10-1.46); Chloride (POC) 93 mmol/L (98-108); Creatinine (POC) 1.1 mg/dL (0.6-1.0); Glucose (ISTAT POC) 545 mg/dL (70-99); Hemoglobin (POC) 9.9 g/dL (12.0-16.0); Potassium (POC) 2.7 mmol/L (3.5-5.5); Sodium (POC) 130 mmol/L (135-148); Total CO2 (POC) 23 mmol/L (21-32)
== END 2019-08-07 15:25 | disposition home or self-care (01) ==
LOC: ER 10:55
PROVIDERS: Emergency Medicine; Physician Assistant
DX: E11.649 Type 2 diabetes mellitus with hypoglycemia without coma (principal); K72.90 Hepatic failure, unspecified without coma; D63.8 Anemia in other chronic diseases classified elsewhere; Z79.899 Other long term (current) drug therapy; K70.30 Alcoholic cirrhosis of liver without ascites; K76.7 Hepatorenal syndrome
CPT/HCPCS: 36415; 80047; 80053; 81001; 82010; 82803; 82947; 85014; 85025; 85610; 87086; 96360; 96361; 99285-25; J1815; J7030

== ENCOUNTER 2019-10-02 09:13 | Inpatient (IN) | payer OTHER ==
[~2019-10-02] VITALS: Ht 149.9 cm; Wt 84.2 kg
[~2019-10-02 09:13] MED LIST changes: +CARV3.125 PO; +Daily Multiple1 EACH PO; +METER-CHECK1 EACH TOP; +Novolin R100 UNIT/M SC; -Verotin-Gr Cap1 EACH PO; +[UNRECOGNIZED DRUG - OTHER] SC
[2019-10-02 09:30] LABS: Hematocrit 30.4 % (33.0-51.0); Hemoglobin 9.1 g/dL (11.5-16.0); Mean Corpuscular HGB 32.9 pg (26.0-34.0); Mean Corpuscular HGB Conc 29.9 g/dL (31.5-36.5); Mean Platelet Volume 10.6 fL (9.1-12.4); NRBC ABSOLUTE 0.04 K/mm3 (0.00-0.02); NRBC Auto 0.6 /100 WBC (0.0-0.2); Platelet Count 92 K/mm3 (150-400); RDW Coefficient Variation 17.8 % (11.7-14.2); RDW Standard Deviation 71.2 fL (35.1-46.3); Red Blood Cell Count 2.77 M/mm3 (3.80-5.20); White Blood Cell Count 6.68 K/mm3 (4.00-11.30)
[2019-10-02 09:40] LABS: Mean Corpuscular Volume 110 fL (80-100)
[2019-10-02 09:52] LABS: International Normalized Ratio 2.31; Prothrombin Time Results 23.6 Sec (9.7-11.5)
[2019-10-02 09:58] LABS: BASOPHILS ABSOLUTE MAN 0.06 K/mm3 (0.00-0.23); BASOPHILS PERCENT MAN 1 % (0-2); EOSINOPHILS ABSOLUTE MAN 0.13 K/mm3 (0.00-0.68); EOSINOPHILS PERCENT MAN 2 % (0-6); LYMPHOCYTES % ATYPICAL MANUAL 4 % (0-0); LYMPHOCYTES ABSOLUTE MAN 2.47 K/mm3 (0.84-5.20); LYMPHOCYTES PERCENT MAN 33 % (21-46); MONOCYTES PERCENT MAN 6 % (4-13); SEG NEUTROPHILS PERCENT MAN 54 % (41-73); TOTAL CELLS COUNTED 100
[2019-10-02 10:11] LABS: Free Thyroxine 1.19 ng/dL (0.70-1.60)
[2019-10-02 10:12] LABS: Thyroid Stimulating Hormone 4.26 uIU/mL (0.360-4.800)
[2019-10-02 10:18] LABS: Albumin, Blood 1.6 g/dL (3.4-5.0); Albumin/Globulin Ratio 0.4 (0.8-1.8); Bilirubin, Total 12.2 mg/dL (0.1-1.0); Bun/Creatinine Ratio 8.9 (12.0-20.0); Calcium, Blood 8.4 mg/dL (8.5-10.1); Creatinine, Blood 1.12 mg/dL (0.40-1.00); Globulin, Blood 3.7 g/dL (2.2-4.0); Total Protein, Blood 5.3 g/dL (6.4-8.2)
[2019-10-02 10:59] LABS: Creatine Kinase MB 1.4 ng/mL (0.0-3.6); Creatine Kinase MB Index 1.6 (0.0-4.0); Troponin I 0.042 ng/mL (0.000-0.040)
[2019-10-02 11:41] LABS: Source, Urine Clean Catch
[2019-10-02 11:49] LABS: Bilirubin, Urine Neg (Neg); Blood, Urine 1+ (Neg); Glucose Qualitative, Urine 2+ (Neg); Ketones, Urine Neg (Neg); Leukocyte Esterase, Urine 2+ (Neg); Nitrite, Urine Neg (Neg); Protein, Urine Neg (Neg); Specific Gravity, Urine 1.015 (1.003-1.022); Urobilinogen, Urine NORM (Normal)
[2019-10-02 12:04] LABS: Appearance, Urine Hazy (Clear); Color, Urine Yellow (P-Yellow)
[2019-10-02 12:06] LABS: Bacteria Many /hpf; Red Blood Cells, Urine 0-2 /hpf (0-2); Squamous Epithelial Cells Rare /hpf (Few); Transitional Epithelial Cells Few /hpf (0-Rare)
[2019-10-02 12:47] LABS: PCO2 Arterial 32.6 mmHg (35-45); PO2 Arterial 103 mmHg (80-100); pH Blood Arterial 7.28 (7.35-7.45)
--- NOTE | 2019-10-02 13:00 | NUR ---
ADMIT PT ADMIT FROM ED VIA STRETCHER AND TRANSFERED TO BED IN 7. LEVO AT 5 WITH MAPS IN LOW 60S. PT CONFUSED TRYING TO SIT UP AND PULLING AT GOWN AND LINES, NOT REDIRECTIBLE. WILL FOLLOW COMMANDS AT TIMES, ORIENTED TO SELF AND DENIES PAIN. PT IN AF RVR IN THE 150S AND PALPL PULSES BOUNDING T/O. PT HYPOTHERMIC WITH BEAR HUGGER IN PLACE. RIGHT FEMORAL CENTRAL LINE INTACT AND INFUSING LEVO. RA WITH SATS IN THE MID TO HIGH 90S AND NO S/S OF RESP DISTRESS. NPO, ABD ROUND AND FIRM WITH DISTANT HYPOACTIVE BT, NO BM AT THIS TIME. KIO TUBE PLACED PER MD ORDER. AKERS IN PLACE AND ADEQUATE UO DARK YELLOW WITH SEDIMENT. JUANDICE SKIN. WILL CONT TO MONITOR
--- NOTE | 2019-10-02 15:00 | NUR ---
PT UPDATE PT SUCCESFULLY CARDIOVERTED AND IN NSR TO ST. LEVO QTT REMAINS AND NUERO STATUS UNCHANGED. WILL CONT TO MONITOR AND WEAN LEVO TOLERATED.
--- NOTE | 2019-10-02 15:04 | NUR ---
Echocardiogram completed.
[2019-10-02 16:16] LABS: Base Excess Venous -8.9 mmol/L; Bicarbonate Venous 17.5 mmol/L (24.0-30.0); PCO2 Venous 34.5 mmHg (38-42); PO2 Venous 44.2 mmHg (38-42); pH Blood Venous 7.31 (7.34-7.37)
[2019-10-02 16:51] LABS: Source, Urine Catheter
[2019-10-02 16:53] LABS: Anion Gap 6 mmol/L (6-16); Blood Urea Nitrogen 12 mg/dL (8-24); Bun/Creatinine Ratio 11.9 (12.0-20.0); CO2, Blood 18 mmol/L (21-32); Calcium, Blood 7.4 mg/dL (8.5-10.1); Chloride, Blood 106 mmol/L (98-108); Creatinine, Blood 1.01 mg/dL (0.40-1.00); Glomerular Filtration Rate >60 (60-); Glucose, Blood 301 mg/dL (70-99); Magnesium, Blood 1.7 mg/dL (1.6-2.4); Phosphorus, Blood 4.3 mg/dL (2.5-4.9); Potassium, Blood 4.7 mmol/L (3.5-5.5); Sodium, Blood 130 mmol/L (136-145); Troponin I 0.041 ng/mL (0.000-0.040)
[2019-10-02 16:57] LABS: Bilirubin, Urine Neg (Neg); Blood, Urine 1+ (Neg); Glucose Qualitative, Urine 3+ (Neg); Ketones, Urine Neg (Neg); Leukocyte Esterase, Urine 2+ (Neg); Nitrite, Urine Neg (Neg); Protein, Urine Neg (Neg); Specific Gravity, Urine 1.015 (1.003-1.022); Urobilinogen, Urine NORM (Normal)
[2019-10-02 17:17] LABS: Appearance, Urine Hazy (Clear); Color, Urine Amber (P-Yellow)
[2019-10-02 17:18] LABS: Bacteria Many /hpf; Hyaline Casts 0-2 /lpf (0-2); Squamous Epithelial Cells Few /hpf (Few)
[2019-10-02 17:19] LABS: Transitional Epithelial Cells Few /hpf (0-Rare); White Blood Cells, Urine 25-50 /hpf (0-5)
[2019-10-02 17:29] LABS: U Amphetamine Screen Not Detected; U Barbituate Screen Not Detected; U Benzodiazapine Screen Not Detected; U Buprenorphine Screen Not Detected; U Cannabinoids Screen Not Detected; U Cocaine Screen Not Detected; U Methadone Screen Not Detected; U Methamphetamine Screen Not Detected; U Opiates Screen Not Detected; U Oxycodone Screen Not Detected; U Phencyclidine Screen Not Detected; U Propoxyphene Screen Not Detected
--- NOTE | 2019-10-02 20:00 | NUR ---
ASSUMPTION OF CARE: PT ALERT TO SELF ONLY. IS ABLE TO FOLLOW A FEW COMMANDS. PT HAS BEEN PULLIMG SOMEWHAT AGAINST RESTRAINTS. SHE IS CURRENTLY IN SR POST CARDIOVERSION, HR IN THE 90S,S SBP IN THE 70-80, MAP IN THE 50S. LUNG SOUNDS ARE CLEAR. SPO2 >90% HOWEVER WILL DESAT WHEN PULLING ON RESTRAINTS. SHE DOES RECOVER QUICKLY. SHE IS CURRENTLY ON RA. MILD ABD DISTENTION. BM ARE WATERY AND AT IN COLOR. NG IS IN PLACE-CLAMPED. R FEM CL IN PLACE INFUSING WITH LEVO AT 18 AND ZOSYN. WILL CONTACT PROVIDER RE SOFT BP.
--- NOTE | 2019-10-02 20:45 | NUR ---
CALL PLACED TO DR KLAUS ZIMMERMAN SOFT BP. MAP HAS BEEN IN THE 50S. LEVOPHED IS RUNNING AT 20. ORDERS RECEIVED FOR A 500ML BOLUS OF NS TO SEE HOW PT RESPONSDS TO FLUID. WILL CONTINUE TO MONITOR.
--- NOTE | 2019-10-02 22:03 | NUR ---
PT RESPONSIVE TO FLUID BOLUS. SBP CURRENTLY IN THE 90S, MAP IS CURRENTLY >60
--- NOTE | 2019-10-02 22:36 | NUR ---
PT INITIALLY RESPONDING TO FLUID BOLUS. HOWEVER MAP IS NOW IN THE 50S. CALL PLACED TO DR HOFF. ORDERS RECEIVED TO RESUME NS AT 200MLS/HR.
[2019-10-03 03:19] LABS: BASOPHILS ABSOLUTE AUTO 0.01 K/mm3 (0.00-0.23); BASOPHILS PERCENT AUTO 0 % (0-2); EOSINOPHILS PERCENT AUTO 0 % (0-6); Hematocrit 23.1 % (33.0-51.0); Hemoglobin 7.3 g/dL (11.5-16.0); IMMATURE GRAN ABSOLUTE AUTO 0.09 K/mm3 (0.00-0.10); IMMATURE GRAN PERCENT AUTO 1 % (0-1); LYMPHOCYTES ABSOLUTE AUTO 0.62 K/mm3 (0.84-5.20); LYMPHOCYTES PERCENT AUTO 5 % (21-46); MONOCYTES ABSOLUTE AUTO 0.69 K/mm3 (0.16-1.47); MONOCYTES PERCENT AUTO 5 % (4-13); Mean Corpuscular HGB 33.8 pg (26.0-34.0); Mean Corpuscular HGB Conc 31.6 g/dL (31.5-36.5); Mean Corpuscular Volume 107 fL (80-100); Mean Platelet Volume 10.2 fL (9.1-12.4); NEUTROPHILS PERCENT AUTO 90 % (41-73); Platelet Count 122 K/mm3 (150-400); RDW Coefficient Variation 18.4 % (11.7-14.2); RDW Standard Deviation 68.4 fL (35.1-46.3); Red Blood Cell Count 2.16 M/mm3 (3.80-5.20); White Blood Cell Count 13.51 K/mm3 (4.00-11.30)
[2019-10-03 03:36] LABS: Albumin, Blood 1.3 g/dL (3.4-5.0); Albumin/Globulin Ratio 0.4 (0.8-1.8); Bilirubin, Total 12.8 mg/dL (0.1-1.0); Bun/Creatinine Ratio 12.1 (12.0-20.0); Calcium, Blood 7.4 mg/dL (8.5-10.1); Creatinine, Blood 1.24 mg/dL (0.40-1.00); Globulin, Blood 3.1 g/dL (2.2-4.0); Potassium, Blood 4.7 mmol/L (3.5-5.5); Total Protein, Blood 4.4 g/dL (6.4-8.2)
--- NOTE | 2019-10-03 06:27 | NUR ---
SUMMARY: PT IS MORE ALERT THROUGHOUT SHIFT. SHE IS AFEBRILE CURRENTLY. IS ABLE TO TELL ME HER FULL NAME AND THAT SHE IS IN [place]. SHE IS ABLE TO FOLLOW SOME COMMANDS HOWEVER SHE NEEDED FREQUENT REDIRECTING. REPEATEDLY ASKED FOR HER PARENTS, HER PRIMARY CARE, AND FOR JUICE AND FOOD. EXPLAINED NUMEROUS TIMES THAT IT WAS LATE AT NIGHT OR VERY EARLY IN THE AM AND WHY SHE WASNT ABLE TO GET JUICE/FOOD AT THIS MOMENT. SHE WOULD STATE AN UNDERSTANDING BUT A FEW MINUTES LATER WOULD ASK THE SAME QUESTIONS. HER BP REMAINED SOMEWHAT SOFT THROUGHOUT SHIFT INITIALLY RESPONDING TO A 500ML BOLUS. MAP HAS BEEN BETWEEN 50-80. REMAINS IN SR WITH ONE PAC. HR HAS BEEN 80-90S. MAP IS CURRENTLY >70. LUNG SOUNDS ARE CLEAR, DIM IN BASES. SPO2 HAS BEEN >90% ON RA. BT PRESENT. SHE HAS HAD MULTIPLE WATERY BMS THIS SHIFT. AKERS IS IN PLACE DRAINING DARK YELLOW URINE. SHE HAS A R FEM CENTRAL LINE INFUSING WITH LEVOPHED AND NS. CL HAS NEEDED A COUPLE OF DRESSING CHANGES THROUGHOUT SHIFT D/T LEAKING BLOOD. THIS WAS LIKELY D/T PT BENDING AT HIP DESPITE FREQUENT REMINDERS TO KEEP LEG STRAIGHT. LAST DRESSING CHANGE AT 0600. SANJEEV PLACED AT SITE. CL SUTURES REMAIN IN PLACE. LEVOPHED CURRENTLY AT 20MCG AND NS IS RUNNING AT 200ML/HR.
--- NOTE | 2019-10-03 08:00 | NUR ---
INITIAL EVAL PT CONFUSED TRYING TO SIT UP AT TIMES AND PULLING AT GOWN AND LINES, NOT REDIRECTIBLE BUT MENTAL STATUS IMPROVED FROM YESTERDAY EVAL. WILL FOLLOW COMMANDS AT TIMES, ORIENTED TO SELF AND DENIES PAIN SR PALPL PULSES T/O. WITH NO EDEMA AND VASO STARTED AND WEANING LEVO RIGHT FEMORAL CENTRAL LINE INTACT AND INFUSING LEVO, VASO AND ANTIBX. SATS IN THE HIGH 90S AND NO S/S OF RESP DISTRESS. TOLERATING PO, ABD ROUND AND FIRM WITH DISTANT HYPOACTIVE BT, TWO LOOSE GREEN/SKELTON STOOLS. KIO TUBE IN PLACE UNTIL PO STATUS INSURED AND STABLE AKERS IN PLACE AND ADEQUATE UO DARK YELLOW WITH SEDIMENT. JUANDICE SKIN. WILL CONT TO MONITOR
[2019-10-03] MEDS ORDERED: ALDACTONE25 MG PO (14:03)
--- NOTE | 2019-10-03 23:09 | NUR ---
ASSUMED CARE OF PT AT 1900. BEDSIDE REPORT RECEIVED. PT DID NOT RESPOND, BUT DID TO TOUCH- SLEEPING. I-TRACE PERFORMED, RUNNING TO RIGHT FEMORAL LINE. SCDs PLACED ON PT, PT NOW TOLERATING. PT WAS TEARFUL DURING CLEANUP, BOOST IN BED, AND LINEN CHANGED. PT HAD SMALL LOOSE BM.
[2019-10-04 05:24] LABS: BASOPHILS PERCENT AUTO 0 % (0-2); EOSINOPHILS ABSOLUTE AUTO 0.01 K/mm3 (0.00-0.68); EOSINOPHILS PERCENT AUTO 0 % (0-6); Hematocrit 19.5 % (33.0-51.0); Hemoglobin 6.1 g/dL (11.5-16.0); IMMATURE GRAN PERCENT AUTO 1 % (0-1); LYMPHOCYTES ABSOLUTE AUTO 0.91 K/mm3 (0.84-5.20); LYMPHOCYTES PERCENT AUTO 9 % (21-46); MONOCYTES ABSOLUTE AUTO 0.77 K/mm3 (0.16-1.47); MONOCYTES PERCENT AUTO 7 % (4-13); Mean Corpuscular HGB 33.2 pg (26.0-34.0); Mean Corpuscular HGB Conc 31.3 g/dL (31.5-36.5); Mean Corpuscular Volume 106 fL (80-100); Mean Platelet Volume 10.7 fL (9.1-12.4); NEUTROPHILS ABSOLUTE AUTO 8.91 K/mm3 (1.96-9.15); NEUTROPHILS PERCENT AUTO 83 % (41-73); Platelet Count 69 K/mm3 (150-400); RDW Coefficient Variation 17.8 % (11.7-14.2); RDW Standard Deviation 66.3 fL (35.1-46.3); Red Blood Cell Count 1.84 M/mm3 (3.80-5.20)
[2019-10-04 05:52] LABS: Alanine Aminotransfer (ALT/SGP 40 U/L (12-78); Albumin, Blood 1.4 g/dL (3.4-5.0); Albumin/Globulin Ratio 0.4 (0.8-1.8); Alk Phos 135 U/L (50-136); Anion Gap 10 mmol/L (6-16); Aspartate Aminotrans (AST/SGOT 48 U/L (12-37); Blood Urea Nitrogen 23 mg/dL (8-24); Bun/Creatinine Ratio 15.2 (12.0-20.0); CO2, Blood 15 mmol/L (21-32); Calcium, Blood 8.4 mg/dL (8.5-10.1); Chloride, Blood 104 mmol/L (98-108); Creatinine, Blood 1.51 mg/dL (0.40-1.00); Globulin, Blood 3.2 g/dL (2.2-4.0); Glomerular Filtration Rate 40 (60-); Glucose, Blood 387 mg/dL (70-99); Potassium, Blood 4.7 mmol/L (3.5-5.5); Sodium, Blood 129 mmol/L (136-145); Total Protein, Blood 4.6 g/dL (6.4-8.2); Vancomycin, Trough 19.5 ug/mL (5.0-10.0)
--- NOTE | 2019-10-04 07:00 | NUR ---
ASSUMING CARE: ASSUMED CARE OF PT. PT IS SLEEPING AT THIS TIME BUT AROUSABLE TO VOICE. ORIENTED. PT KEEP STATING SHE WANTED TO GO HOME. SHE'S MOSTLY ORIENTED BUT DOES NOT REMEMBER WHY SHE ENDED UP IN THE HOSPITAL. PT IS STILL ON LEVOPHED DRIP @ 6MCG/KG/MIN. VASOPRESSIN @ 0.04 UNITS/HR.
--- NOTE | 2019-10-04 08:30 | NUR ---
PT'S MOTHER HELP FEEDING PT. PT ONLY HAD A FEW BITES OF HER BREAKFAST. SHE STATED SHE DOES NOT HAVE THE APPETITE TO EAT. DOBHOFF STILL IN PLACE. PT HAS NOT ATTEMPTED TO REACH AND PULL TUBES AND LINES. EXPLAINED TO PT'S MOTHER REGARDING DISEASE PROCESS, LAB TESTS.
--- NOTE | 2019-10-04 10:45 | NUR ---
PT SEEN BY DR. ENRIQUE UPDATED HER OF PT'S STATUS. 1 UNIT PRBC WAS STARTED @ 1022. WILL WATCH FOR BLOOD TRANSFUSION REACTION.
[2019-10-04 13:43] LABS: Stool Occult Blood Guaiac 1 Neg (Neg)
--- NOTE | 2019-10-04 18:48 | NUR ---
SHIFT SUMMARY: PT IS SLEEPING AT THIS TIME. STILL ON LEVOPHED DRIP @ 7MCG/KG/MIN. PT HAD 2 BM TODAY. PT WAS ABLE TO SIT ON THE CHAIR FOR AN HOUR. AFEBRILE. PT RECEIVED A UNIT OF PRBC TODAY. PIVOT 1.5 TUBE FEEDING IS AT 25ML/HR.
--- NOTE | 2019-10-04 19:00 | NUR ---
ASSUMED CARE NOTE: ASSUMED CARE OF PT @ 1900, RECEVIED REPORT FROM DUSTIN SELBY. PT IS ABLE TO RESPOND TO PAINFUL AND VERBAL STIMULI AND ABLE TO FOLLOW DIRECTIONS. PT IS UNABLE TO STATE TIME/PLACE, AND IS UNABLE TO ANSWER QUESTIONS APPRORIATLY. PT IS ON RA WITH SPO2 @ 100%. PT'S CARDIAC RYTHYM IS FLUCTUATING FROM BEING IN SINUS TO AFIB. PT HAS BEEN HAVING SHORT RUNS OF VTACH. LEVOPHED CURRENTLY AT 7MCG/MIN, MAP ABOVE 65. CENTRAL LINE DRESSING IS SATURATED, WILL CHANGE. AKERS DRAINING ORANGE URINE. BED AT LOWEST LEVEL, CALL LIGHT WITHIN REACH. WILL CONTINUE TO MONITOR PT T/O SHIFT
--- NOTE | 2019-10-04 20:34 | NUR ---
UPDATE: FEMORAL CENTRAL LINE DRESSING WAS SATURATED, DRESSING AND CAPS CHANGED. AKERS WAS LEAKING AND BALLON WAS AT 6CC, 4CC TO BALLON WAS ADDED. PT C/O BILAT ARM PAIN WHEN ASKED TO DESCRIBE PAIN, PT BEGINS TO CRY AND STATES " I DONT KNOW". PT CRIES WHEN TOUCHED OR WHEN REPOSITINED.
[2019-10-04 23:03] LABS: Magnesium, Blood 1.7 mg/dL (1.6-2.4); Potassium, Blood 4.1 mmol/L (3.5-5.5)
--- NOTE | 2019-10-04 23:34 | NUR ---
UPDATE: CHARGE NURSE NOTIFIED DR. ENRIQUE OF CHANGES TO HR AND RYTHYM. EKG WAS OBTAINED. ORDERS TO CHECK MAG AND POTASSIUM BLOOD LEVELS WERE ORDERED.
[2019-10-05 00:22] LABS: Glucose, Blood 514 mg/dL (70-99)
--- NOTE | 2019-10-05 00:28 | NUR ---
CALLED REGARDING BLOOD GLUCOSE OVER 500, AND MAGNESIUM RESULTS. ORDERS GIVEN TO COVER WITH HSS 18U, AND RECHECK CBG IN THREE HOURS. ORDERS ALSO GIVEN FOR MAGNESIUM REPLACEMENT.
--- NOTE | 2019-10-05 01:43 | NUR ---
CALLED , REGARDING ELEVATED HR OF 150 BPM. ORDERS GIVEN TO REDUCED LEVO TO 4MCG/MIN, AND TO TITRATE BASED TO REACH A MAP OF 55-60.
[2019-10-05 04:02] LABS: BASOPHILS ABSOLUTE AUTO 0.01 K/mm3 (0.00-0.23); BASOPHILS PERCENT AUTO 0 % (0-2); EOSINOPHILS ABSOLUTE AUTO 0.01 K/mm3 (0.00-0.68); EOSINOPHILS PERCENT AUTO 0 % (0-6); Hematocrit 20.8 % (33.0-51.0); Hemoglobin 6.8 g/dL (11.5-16.0); IMMATURE GRAN ABSOLUTE AUTO 0.18 K/mm3 (0.00-0.10); IMMATURE GRAN PERCENT AUTO 2 % (0-1); LYMPHOCYTES ABSOLUTE AUTO 1.04 K/mm3 (0.84-5.20); LYMPHOCYTES PERCENT AUTO 9 % (21-46); MONOCYTES ABSOLUTE AUTO 1.56 K/mm3 (0.16-1.47); MONOCYTES PERCENT AUTO 13 % (4-13); Mean Corpuscular HGB 32.1 pg (26.0-34.0); Mean Corpuscular HGB Conc 32.7 g/dL (31.5-36.5); Mean Platelet Volume 9.4 fL (9.1-12.4); NEUTROPHILS PERCENT AUTO 76 % (41-73); NRBC ABSOLUTE 0.07 K/mm3 (0.00-0.02); NRBC Auto 0.6 /100 WBC (0.0-0.2); Platelet Count 53 K/mm3 (150-400); RDW Coefficient Variation 22.2 % (11.7-14.2); RDW Standard Deviation 75.2 fL (35.1-46.3); Red Blood Cell Count 2.12 M/mm3 (3.80-5.20)
[2019-10-05 04:04] LABS: Mean Corpuscular Volume 98 fL (80-100)
[2019-10-05 04:19] LABS: Albumin, Blood 1.3 g/dL (3.4-5.0); Albumin/Globulin Ratio 0.4 (0.8-1.8); Bilirubin, Total 11.7 mg/dL (0.1-1.0); Bun/Creatinine Ratio 16.6 (12.0-20.0); Calcium, Blood 8.8 mg/dL (8.5-10.1); Creatinine, Blood 1.57 mg/dL (0.40-1.00); Globulin, Blood 2.9 g/dL (2.2-4.0); Magnesium, Blood 2.3 mg/dL (1.6-2.4); Phosphorus, Blood 2.9 mg/dL (2.5-4.9); Potassium, Blood 3.8 mmol/L (3.5-5.5); Total Protein, Blood 4.2 g/dL (6.4-8.2)
--- NOTE | 2019-10-05 04:24 | NUR ---
UPDATE: LEVOPHED IS AT 4MCG/MIN, MAP MAINTAINING ABOVE 55. HR IS NOW BETWEEN 80-105. CENTRAL LINE DRESSING WAS CHANGED ONCE AGAIN DUE TO SEROUS FLUID DRAINING OUT OF INSERTION SITE. WHILE PERFOMING DRESSING CL DRESSING CHANGE, PT WAS ABLE TO REACH OVER AND TOUCH INSERTION SITE DESPITE HAVING TWO STAFF HOLDING PATIENT'S HANDS.
--- NOTE | 2019-10-05 05:59 | NUR ---
SHIFT SUMMARY: SEE PREVIOUS NOTES. PT RESPONDING TO PAINFUL AND VERBAL STIMULI. PT WILL NOT ANSWER QUESTIONS OR FOLLOW DIRECTIONS. PT WILL BECOME AGITATED WHEN TOUCHED AND STATE "LEAVE ME ALONE". WHEN PT IS TOUCHED SHE WILL SCREAM OUT " IT HURTS, IT HURTS", HOWEVER, IS UNABLE TO STATE WHERE. PT IS CALM AND SLEEPING WHEN NOT DISTRUBED. PT HAS BEEN IN SINUS, SINUS TACH, AND AFIB T/O THE SHIFT. IS IS CURRENTLY IN SINUS ARRYTHMIA WITH HR BETWEEN 80-90. PT HAS ALSO BEEN HAVING PVC, AND SHORT RUNS OF V-TACH T/O SHIFT, PHYSICAN IS AWARE. LEVOPHED @ 6MCG/MIN. Hgb WAS LOW THIS AM, 1 UNIT OF PRBC WILL BE GIVEN. PT HAS HAD TWO LOOSE BM'S THIS SHIFT. CENTRAL LINE DRESSING WAS CHANGED TWICE THIS SHIFT DUE TO SEROUS DRAINAGE FROM INSERTION SITE. AKERS PATENT AND DRAINING ORANGE URINE. TUBE FEEDING GOING @ 35ML/HR. WILL CONTINUE TO MONITOR PT UNTIL REPORT IS GIVEN TO ONCOMING SHIFT.
--- NOTE | 2019-10-05 08:05 | NUR ---
INITIAL ASSESSMENT PATIENT SLEEPING UPON ENTERING ROOM. PATIENT RESPONDS TO VERBAL STIMULI. PATIENT CONFUSED AND ORIENTED ONLY TO SELF AND FAMILY. PATIENT WITHDRAWN AND TEARFUL WHEN AWAKE. PATIENT SLOW TO RESPOND. SCLERA JAUNDICED. PATIENT WEAK BUT ABLE TO MOVE ALL EXTREMITIES. PATIENT AFEBRILE. PATIENT SATTING 90% AND GREATER ON RA. CRACKLES NOTED IN UPPER LUNG LOBES. PATIENT IN SR WITH PACS. HR 70S TO 80S. BP STABLE ON LEVOPHED. PATIENT EDEMATOUS WITH ASCITES NOTED. SCDS IN PLACE. ABDOMEN MODERATELY DISTENDED. DOBHOFF IN PLACE WITH PIVOT 1.5 INFUSING AT 35 MLS/ HOUR WITH 30 ML WATER FLUSH Q4H. PATIENT RECEIVING SCHEDULED LACTULOSE. PATIENT HAVING LARGE, LIQUID, YELLOW STOOLS. AKERS IN PLACE, DRAINING JHOAN COLORED URINE. SKIN JAUNDICED. SCATTERED BRUISING NOTED. BED LOW, CALL LIGHT IN REACH. WILL CONTINUE TO MONITOR PATIENT FREQUENTLY THROUGHOUT SHIFT.
--- NOTE | 2019-10-05 10:20 | NUR ---
DR. ENRIQUE UPDATED ON PATIENT STATUS. INFORMED THAT 1 UNIT PRBCS COMPLETE. NO ORDER RECEIVED FOR FOLLOWUP H&H LAB. INFORMED THAT LEVOPHED HAD TO BE INCREASED THIS AM BUT HAS SINCE BEEN DECREASED TO 6 MCG/ MINUTE. INFORMED THAT EQUAL EMPLOYMENT OPPORTUNITY OFFICER RN REPORTED THAT R FEM CL LEAKING AND DRESSING CHANGED MULTIPLE TIMES DURING SHIFT. INFORMED THAT PATIENT'S AMMONIA LEVEL UNDER 10 THIS AM AND THAT PATIENT IS CONTINUING TO RECEIVE SCHEDULED LACTULOSE. STATED SHE WOULD LOOK INTO. INFORMED THAT PATIENT'S BLOOD SUGARS CONTINUE TO BE HIGH DESPITE HSS INSULIN Q6H AND LONG ACTING INSULIN. STATED SHE WOULD TAKE A LOOK AT AND PLACE ORDERS.
--- NOTE | 2019-10-05 11:01 | NUR ---
Initial Assessment Pt here for AMS. Pt is arousable, but sleepy, AOx1. Afebrile. Pt becomes tearful when providing care, stating she hurts all over. Pt is bedfast due to weakness, but can assist minimally when repositioning. Pt currently NPO, oral care provided Q4. VS WNL. Tele strip shows sinus arrhythmia. Pt tolerated meds well through NG tube. +1 pitting edema noted on upper bilateral extremeties and lower bilateral extremeties. Lung sounds diminshed at bases bilaterally. Inspiratory crackles noted in RUL AND HARRY. PT sats >90 on rm air. Pt receiving scheduled lactulose. Family is at bedside. Call light within reach and bed in lowest position.
--- NOTE | 2019-10-05 12:00 | NUR ---
PATIENT HAS CONTINUED NAPPING ALL DAY. NO CHANGE IN NEURO STATUS. PATIENT REMAINS CONFUSED. PATIENT ASKED THE DATE AND STATED "1998". PATIENT ASKED HER DATE AND STATED "2000". PATIENT ASKED TO OPEN EYES AND SHE STATED LOUDER "1998". PATIENT REMAINED AFEBRILE. PATIENT REMAINS SATTING 90% AND GREATER ON RA. HR 60S TO 80S. BP STABLE ON LEVOPHED AT 6 MCG/ MINUTE. FAMILY AT BEDSIDE. WILL CONTINUE TO MONITOR.
--- NOTE | 2019-10-05 13:20 | NUR ---
DR. ENRIQUE INFORMED OF BLOOD SUGAR OF 477 AND THAT 18 UNITS HUMULIN R GIVEN. NS STARTED AT 50 MLS/ HOUR. NO ORDERS RECEIVED AT THIS TIME.
--- NOTE | 2019-10-05 16:00 | NUR ---
PATIENT SLEEPING SOUNDLY UPON ENTERING ROOM. PATIENT REMAINS CONFUSED. PATIENT AFEBRILE. VSS. LEVOPHED AT 5 MCG/ MINUTE. NO OTHER ACUTE CHANGES TO NOTE ON AT THIS TIME. WILL CONTINUE TO MONITOR.
--- NOTE | 2019-10-05 17:52 | NUR ---
DR. ENRIQUE CALLED AND INFORMED OF BLOOD SUGAR OF 497. INFORMED THAT 18 UNITS INSULIN GIVEN. ORDER TO GIVE LONG ACTING INSULIN NOW.
--- NOTE | 2019-10-05 17:56 | NUR ---
SHIFT SUMMARY PATIENT REMAINS WITHDRAWN AND TEARFUL WHEN AWAKE. PATIENT HAS MOSTLY BEEN SLEEPING THROUGHOUT THE SHIFT. PATIENT REMAINS RESPONDING TO VERBAL STIMULI AND REMAINS CONFUSED. PATIENT CONTINUES TO HAVE JAUNDICED SKIN AND SCLERA. PATIENT REMAINS WEAK BUT IS ABLE TO MOVE ALL EXTREMITIES. PATIENT COMPLAINED OF "ALL OVER PAIN" WHEN AWAKE AND RECEIVING NURSING CARE. SOON NURSING CARE COMPLETE, PATIENT WOULD GO BACK TO SLEEP. PATIENT REMAINED AFEBRILE. PATIENT REMAINED SATTING 90% AND GREATER ON RA. PATIENT REMAINED IN SR WITH PACS. HR 60S TO 80S. BP HAS BEEN STABLE ON LEVOPHED RANGING FROM 4 TO 7 MCG/ MINUTE. LEVOPHED CURRENTLY AT 4 MCG/ MINUTE. SCDS IN PLACE. PATIENT REMAINS EDEMATOUS IN ARMS, LEGS, THIGHS AND ASCITES NOTED. TF INFUSING AT GOAL RATE OF 35 MLS/ HOUR WITH 30 ML WATER FLUSH Q4H. PATIENT HAD 2 LARGE, LIQUID, YELLOW STOOLS THIS SHIFT. PATIENT RECEIVED LACTULOSE OT. AKERS DRAINED 320 CC JHOAN COLORED URINE. NS INFUSING AT 50 MLS/ HOUR. BLOOD SUGARS RANGED FROM 426 TO 497. HSS INSULIN BEING GIVEN. DR. ENRIQUE INCREASED LONG ACTING INSULIN DOSE AND HAD 2100 DOSE GIVEN EARLY. PATIENT RECEIVED 1 UNIT PRBCS THIS SHIFT. PATIENT'S MOM AND DAD HERE TO VISIT T/O DAY. PATIENT APPEARS COMFORTABLE AT THIS TIME. BED LOW, CALL LIGHT IN REACH. WILL BE GIVING REPORT TO ONCOMING MAGNETIC RESONANCE IMAGING COORDINATOR NURSE SHORTLY.
--- NOTE | 2019-10-05 20:16 | NUR ---
ASSUMPTION OF CARE: PT A&O TO SELF AND FAMILY. AFEBRILE. IN SR WITH OCC PACS. HR 60-80S SBP IN THE 90-110S. LUNG SOUNDS CLEAR. SPO2 >90% ON RA. DOBHOFF IN PLACE WITH PIVOT TF AT GOAL OF 35. AKERS IN PLACE DRAINING DARK YELLOW URINE. PICC IN ALEXIS INFUSING WITH LEVOPHED AT 1MCG AND NS AT 50MLS. R GROIN SITE FROM PULLED CL IS LEAKING SLIGHTLY. NO HEMATOMA OR BRUISING AT SITE. WILL CONTINUE TO MONITOR.
--- NOTE | 2019-10-05 21:34 | NUR ---
PT HAVING OCC PVC AND ONE SHORT RUN OF VTACH. PT HAS NO COMPLAINTS AT THIS TIME
--- NOTE | 2019-10-06 00:55 | NUR ---
PT CURRENTLY RESTING. VSS. NO COMPLAINTS AT THIS TIME.
[2019-10-06 03:34] LABS: BASOPHILS ABSOLUTE AUTO 0.01 K/mm3 (0.00-0.23); BASOPHILS PERCENT AUTO 0 % (0-2); EOSINOPHILS ABSOLUTE AUTO 0.27 K/mm3 (0.00-0.68); EOSINOPHILS PERCENT AUTO 3 % (0-6); Hematocrit 22.7 % (33.0-51.0); Hemoglobin 7.7 g/dL (11.5-16.0); IMMATURE GRAN ABSOLUTE AUTO 0.25 K/mm3 (0.00-0.10); IMMATURE GRAN PERCENT AUTO 2 % (0-1); LYMPHOCYTES ABSOLUTE AUTO 1.33 K/mm3 (0.84-5.20); LYMPHOCYTES PERCENT AUTO 12 % (21-46); MONOCYTES ABSOLUTE AUTO 1.39 K/mm3 (0.16-1.47); MONOCYTES PERCENT AUTO 13 % (4-13); Mean Corpuscular HGB 32.8 pg (26.0-34.0); Mean Corpuscular HGB Conc 33.9 g/dL (31.5-36.5); Mean Corpuscular Volume 97 fL (80-100); Mean Platelet Volume 10.4 fL (9.1-12.4); NEUTROPHILS ABSOLUTE AUTO 7.69 K/mm3 (1.96-9.15); NEUTROPHILS PERCENT AUTO 70 % (41-73); NRBC ABSOLUTE 0.18 K/mm3 (0.00-0.02); NRBC Auto 1.6 /100 WBC (0.0-0.2); RDW Coefficient Variation 20.8 % (11.7-14.2); RDW Standard Deviation 67.1 fL (35.1-46.3); Red Blood Cell Count 2.35 M/mm3 (3.80-5.20); White Blood Cell Count 10.94 K/mm3 (4.00-11.30)
[2019-10-06 03:39] LABS: Platelet Count 39 K/mm3 (150-400)
[2019-10-06 03:52] LABS: Albumin, Blood 1.3 g/dL (3.4-5.0); Albumin/Globulin Ratio 0.5 (0.8-1.8); Bilirubin, Total 9.7 mg/dL (0.1-1.0); Bun/Creatinine Ratio 18.9 (12.0-20.0); Calcium, Blood 8.8 mg/dL (8.5-10.1); Creatinine, Blood 1.59 mg/dL (0.40-1.00); Globulin, Blood 2.7 g/dL (2.2-4.0); Magnesium, Blood 2.5 mg/dL (1.6-2.4); Phosphorus, Blood 2.3 mg/dL (2.5-4.9); Potassium, Blood 3.8 mmol/L (3.5-5.5)
[2019-10-06 04:25] LABS: Prothrombin Time Results 28.2 Sec (9.7-11.5)
--- NOTE | 2019-10-06 04:27 | NUR ---
CALL PLACED TO DR HOFF RE PLATELET COUNT OF 39. NO NEW ORDERS RECEIVED. CONTINUE TO MONITOR.
[2019-10-06 04:29] LABS: International Normalized Ratio 2.79
--- NOTE | 2019-10-06 05:57 | NUR ---
SUMMARY: NO ACUTE CHANGES THROUGHOUT SHIFT. PT BP HAS BEEN SOMEWHAT SOFT WITH MAPS 50-70S ALL SHIFT. LUNG SOUNDS REMAIN CLEAR ON RA. LEVOPHED IS CURRENTLY INFUSING AT 2MCG. R FEM GROIN SITE CONTINUES TO LEAK SANGIOUNESS FLUID. NO HEMATOMA OR TENDERNESS AT SITE. SOME LEAKING AT PICC LINE INSERTION. PT SLEPT MAJORITY OF SHIFT BUT WOULD WAKE WITH VERBAL STIMULI. WHEN SHE IS AWAKE SHE IS TEARFUL AND ASKING ABOUT FAMILY AND WHEN SHE CAN GO HOME. WILL PASS REPORT TO ONCOMING RN.
[2019-10-06 07:15] LABS: PO2 Arterial 100 mmHg (80-100)
--- NOTE | 2019-10-06 07:23 | NUR ---
CALLED AND SPOKE TO DR. JENSEN ABOUT HIS MORNING ORDERS. INFORMED HIM OF THIS MORNING ABG RESULTS. INFORMED HIM THAT ORDER FOR ALBUMIN RECEIVED AND STATES TO GIVE BID WITH DIURETIC. INFORMED THAT NO DIURETIC ORDERED AT THIS TIME. STATED HE WILL START DIURETIC IN A DAY OR TWO AND TO GO AHEAD AND START GIVING THE ALBUMIN BID. ASKED IF HE WOULD STILL LIKE THE 10 MM SODIUM PHOS AND HE STATED HE DID.
--- NOTE | 2019-10-06 08:00 | NUR ---
INITIAL ASSESSMENT PATIENT RESTING QUIETLY UPON ENTERING ROOM. PATIENT RESPONDS TO VERBAL STIMULI. PATIENT ALERT AND ORIENTED TO SELF, FAMILY, FOLLOWING DIRECTIONS AND THE YEAR. SLIGHT FACIAL MUSCLE TWITCHING NOTED. PATIENT TEARY AND ANXIOUS WHEN AWAKE. SCLERA JAUNDICED. PATIENT AFEBRILE. PATIENT WEAK BUT ABLE TO MOVE ALL EXTREMITIES AND HELP WITH REPOSITIONING. PATIENT SATTING 90% AND GREATER ON RA. LUNGS CLEAR IN UPPER LOBES. FINE CRACKLES NOTED IN LOWER LOBES. NO COUGH NOTED. PATIENT IN SR WITH FREQUENT PVCS. PATIENT HAD LONG RUN OF ASYMPTOMATIC VTACH THIS AM. HR IN THE 80S. LEVOPHED AT 3 MCG/ MINUTE FOR HYPOTENSION. PATIENT EDEMATOUS. ACSITES NOTED. ABDOMEN MILDLY DISTENDED, SOFT, WITH HYPERACTIVE BS NOTED. DOBHOFF IN PLACE- PIVOT 1.5 INFUSING AT GOAL RATE OF 35 MLS/ HOUR AND 30 ML WATER FLUSH Q4H. AKERS IN PLACE DRAINING JHOAN/ ORANGE COLORED URINE. SKIN JAUNDICED. SCATTERED BRUISING NOTED. NS INFUSING AT 50 MLS/ HOUR. BED LOW, CALL LIGHT IN REACH. FAMILY AT BEDSIDE. WILL CONTINUE TO MONITOR PATIENT FREQUENTLY THROUGHOUT SHIFT.
--- NOTE | 2019-10-06 10:34 | NUR ---
DR. RAMOS UPDATED ON PATIENT. INFORMED THAT PATIENT REMAINS CONFUSED BUT MORE ORIENTED THAN YESTERDAY. INFORMED THAT PATIENT HAS SLIGHT TWITCHING OF FACIAL MUSCLES NOTED. TWITCHING COMES AND GOES; COULD POSSIBLY WHEN PATIENT IS TRYING TO CONCENTRATE TO ANSWER NURSE QUESTIONS. INFORMED THAT PATIENT HAD ONLY 250 CC URINE OUT ON SBA UNDERWRITER. INFORMED THAT PHOS LOW AT 2.3. INFORMED THAT DR. JENSEN ORDERED FOR ALBUMIN AND 10 MM SODIUM PHOS THIS AM. INFORMED THAT HEMOGLOBIN 7.7 AND PLATELETS CRITICALLY LOW AT 39. INFORMED THAT PICC INSERTION SITE AND OLD CENTRAL LINE INSERTION SITE CONTINUE TO OOZE. INFORMED THAT LEVOPHED INFUSING AT 3 MCG/ MINUTE. INFORMED THAT PATIENT HAS BEEN IN SR WITH FREQUENT PVCS THIS AM. INFORMED THAT PATIENT HAD MULTIPLE RUNS OF VTACH, PER REPORT, ON SBA UNDERWRITER AND ALSO HAD RUN OF VTACH/ INCREASED QRS LENGTH THIS AM. EKG STRIP SHOWN TO DR. RAMOS. INFORMED THAT PATIENT STATES SHE WOULD LIKE TO EAT AND DRINK. INFORMED THAT PATIENT HAS DOBHOFF AND THAT TF IS INFUSING AT GOAL RATE. INFORMED THAT SBA UNDERWRITER REPORTED THAT PATIENT HAD 1 STOOL OVERNIGHT. INFORMED THAT BLOOD SUGAR 339 THIS AM AND THAT SS INSULIN GIVEN EARLY AND LONG ACTING INSULIN ALSO GIVEN. STATED TO RECHECK BLOOD SUGAR AROUND 1130 AND GIVE SS INSULIN AGAIN IF CONTINUES TO BE HIGH. STATED SHE WOULD PUT ORDERS IN.
--- NOTE | 2019-10-06 14:02 | NUR ---
NEURO STATUS REMAINS UNCHANGED. PATIENT AFEBRILE. PATIENT IN SR WITH PVCS, HR 70S TO 90S. PATIENT ON LEVOPHED AT 4 MCG/ MINUTE. NOTED OF MINIMAL UO. PATIENT HAD ONE MEDIUM, LIQUID, YELLOW/ BROWN BM. BLOOD SUGAR OF 292; COVERAGE GIVEN. NO OTHER ACUTE CHANGES TO NOTE ON AT THIS TIME. NO COMPLAINTS OF PAIN. FAMILY AT BEDSIDE. WILL CONTINUE TO MONITOR.
--- NOTE | 2019-10-06 15:22 | NUR ---
Initial palliative care consult: Rashmi is a 39 year old with a history of HTN, CKD stage 3, CHF, esophageal varices, alcoholic liver cirrhosis, DM and new onset a-fib. She was found unresponsive at home by her parents who she lives with. Rashmi opens her eyes occasionally during the visit, however she has minimal interaction with this appeals writer. Her dad, Cori, is at her bedside and provides information. He says that she is doing much better today. He reports that Rashmi lives with her mother and himself. Rashmi's parents are not , however they have been together for 42 years. Rashmi is the youngest of three children, she has two older siblings that were adopted. He tells the story of finding her naked and unresponsive and how much that scared him. He reports that the last year or so of her illness has been very difficult and the thought of losing Rashmi is almost too much for him to think about. He reports many trips to [facility]. He is hopeful for a liver transplant. Allowed him to vent his feelings and worries. He is grateful for the time he has been able to spend with Rashmi and hopes that he will continue to have more time. This visit was mostly therapeutic in nature and developed a rapport. Did broach the subject of code status or advanced care planning at this time. Cori reports that Rashmi lives with her mother and him. He states she is "stubborn" at times. When asked if they had any help in the home to care for her, Rashmi responded without opening her eyes "We don't need any." Rashmi did ask about going home and asked if she could have more to eat. Nursing stated that they would bring her a snack when they finished giving her a bed bath after this appeals writer's visit. Rashmi is jaundiced and appears quite fatigued at this time. Will allow her to rest and will continue to visit with Rashmi and her family in the coming days to establish goals and a plan going forward.
--- NOTE | 2019-10-06 16:00 | NUR ---
PATIENT LESS TEARFUL. PATIENT MORE AWAKE AND ALERT. PATIENT HR 70S TO 90S. LEVOPHED AT 6 MCG/ MINUTE. NO OTHER ACUTE CHANGES TO NOTE ON AT THIS TIME. WILL CONTINUE TO MONITOR.
--- NOTE | 2019-10-06 19:27 | NUR ---
SHIFT SUMMARY PATIENT MORE AWAKE AND ALERT TODAY. PATIENT LESS ANXIOUS AND TEARFUL SHIFT PROGRESSED. PATIENT STRENGTH SEEMS TO BE IMPROVING. PATIENT HELPING TO REPOSITION SELF. PATIENT REMAINED AFEBRILE. PATIENT COMPLAINED OF SENSITIVITY TO SKIN WHEN TOUCHED. PATIENT HAD NO COMPLAINTS OF PAIN WHEN BEING LEFT ALONE. PATIENT REMAINED SATTING 90% AND GREATER ON RA. LUNGS CLEAR IN UPPER LOBES WITH CRACKLES IN LOWER LOBES. PATIENT IN SR WITH FREQUENT PVCS IN AM; LESS PVCS DAY PROGRESSED. PATIENT HAD RUN OF LENGTHENED QRS THIS AM; DR. RAMOS AWARE. HR RANGED FROM 70S TO 90S. BP STABLE ON LEVOPHED FROM 3 TO 7 MCG/ MINUTE. PATIENT CONTINUES TO BE EDEMATOUS. DOBHOFF REMAINS IN PLACE- INFUSING AT 35 MLS THIS AM BUT NOW AT 20 MLS/ HOUR AFTER PATIENT PASSED SWALLOW EVAL AND PLACED ON PUREE DIET. PATIENT TOLERATED PUREE DINNER DIET WELL. DOBHOFF TO STAY IN PLACE FOR NOW PER DR. RAMOS. USE DOBHOFF FOR MED ADMINISTRATION. PATIENT GIVEN PRN LACTULOSE OT THIS SHIFT. PATIENT HAD TWO LIQUID/ LOOSE BMS. AKERS DRAINED ORANGE/ JHOAN COLORED URINE; 470 CC OUT THIS SHIFT. DRESSING TO R FEM CL CHANGED TWICE THIS SHIFT. ALEXIS PICC DRESSING CHANGED OT AND APPEARS TO BE HOLDING WELL WITH NO FURTHER BLEEDING NOTED. LEVOPHED CURRENTLY INFUSING AT 6 MCG/ MINUTE, NS TKO. BLOOD SUGARS RANGED FROM 279 TO 398; HSS COVERAGE GIVEN. LONG ACTING INSULIN DOSE INCREASED TODAY. CHEST XR PERFORMED THIS SHIFT. OT WORKED WITH PATIENT. PATIENT RECEIVED ALBUMIN AND 10 MM SODIUM PHOS TODAY PER DR. JENSEN. PATIENT HAD COMPLETE BED BATH. PATIENT'S MOTHER AND FATHER HERE THROUGHOUT DAY. PATIENT HAS NO COMPLAINTS AT THIS TIME. BED LOW, CALL LIGHT IN REACH. REPORT HAS BEEN GIVEN TO ASSUMING SHOOK MACHINE OPERATOR NURSE.
--- NOTE | 2019-10-06 22:24 | NUR ---
ASSUMED CARE OF PATIENT AT 1900. BEDSIDE REPORT GIVEN, PT AWAKE WITH FLAT AFFECT. I-TRACE PERFORMED. FAMILY MEMBER VISITED FOR A COUPLE HOURS THEN LEFT. PT MORE RECEPTIVE TO PERSONAL CARE THAN PREVIOUSLY, AND ASKED FOR CLEANUP.
[2019-10-07 00:41] LABS: BASOPHILS ABSOLUTE AUTO 0.01 K/mm3 (0.00-0.23); BASOPHILS PERCENT AUTO 0 % (0-2); EOSINOPHILS ABSOLUTE AUTO 0.74 K/mm3 (0.00-0.68); EOSINOPHILS PERCENT AUTO 6 % (0-6); Hematocrit 24.9 % (33.0-51.0); IMMATURE GRAN ABSOLUTE AUTO 0.28 K/mm3 (0.00-0.10); IMMATURE GRAN PERCENT AUTO 2 % (0-1); LYMPHOCYTES ABSOLUTE AUTO 0.93 K/mm3 (0.84-5.20); LYMPHOCYTES PERCENT AUTO 8 % (21-46); MONOCYTES PERCENT AUTO 9 % (4-13); Mean Corpuscular HGB 32.8 pg (26.0-34.0); Mean Corpuscular HGB Conc 32.1 g/dL (31.5-36.5); Mean Platelet Volume 10.5 fL (9.1-12.4); NEUTROPHILS ABSOLUTE AUTO 8.55 K/mm3 (1.96-9.15); NEUTROPHILS PERCENT AUTO 74 % (41-73); NRBC ABSOLUTE 0.25 K/mm3 (0.00-0.02); NRBC Auto 2.2 /100 WBC (0.0-0.2); RDW Coefficient Variation 22.1 % (11.7-14.2); RDW Standard Deviation 72.2 fL (35.1-46.3); Red Blood Cell Count 2.44 M/mm3 (3.80-5.20); White Blood Cell Count 11.51 K/mm3 (4.00-11.30)
[2019-10-07 00:43] LABS: Mean Corpuscular Volume 102 fL (80-100)
[2019-10-07 00:44] LABS: Platelet Count 43 K/mm3 (150-400)
[2019-10-07 00:55] LABS: Bun/Creatinine Ratio 18.6 (12.0-20.0); Calcium, Blood 9.1 mg/dL (8.5-10.1); Creatinine, Blood 1.61 mg/dL (0.40-1.00); Magnesium, Blood 2.3 mg/dL (1.6-2.4); Phosphorus, Blood 3.3 mg/dL (2.5-4.9); Potassium, Blood 4.3 mmol/L (3.5-5.5)
--- NOTE | 2019-10-07 02:48 | NUR ---
RHYTHM CHANGE 0007- MONITOR SHOWS AFIB WITH RVR, RATE 150s. PT IS AWAKE AND ALERT. DENIES C/O CHEST PAIN OR SOB. BP 83/49 WITH LEVOPHED @ 7MCG/MIN. DR. RAMOS NOTIFIED. 0030- MONITOR SHOWS WIDE COMPLEX TACHYCARDIA, RATE 150-230. BP 54/55. DR. RAMOS AT BEDSIDE. ADENOSINE 6MG IV GIVEN WITH VERT BRIEF RETURN TO SR AND THEN BACK TO TACHYCARDIA. STAT LABS DRAWN. 500CC NS IV BOLUS STARTED. 0039- PREMEDICATED WITH FENTANYL 25MCG IV AND THEN ATTEMPTED CARDIOVERSION AT 100 JOULES. CARDIOVERSION UNSUCCESSFUL. PT IS STILL AWAKE AND ALERT. 0042- AMIODARONE 150MG IV BOLUS STARTED AT THIS TIME. SBP 50s. PT PLACED ON 2L NC. 0050- AMIODARONE GTT STARTED @ 1MG/MIN PER DR. RAMOS. 005- ATTEMPTED CARDIOVERSION WITH 100 JOULES. UNSUCCESSFUL. 0057- VASOPRESSIN STARTED @ 0.04UNITS/MIN (2.4CC/HR). 0058- RATE CONTINUES TO BE 150-200s. ATTEMPTED CARDIOVERSION WITH 120 JOULES- UNSUCCESSFUL. BP 85/42. 0200- PT IS TEARFUL. REFUSING FURTHER CARDIOVERSION ATTEMPTS AT THIS TIME AND REQUESTS THAT PARENTS BE CALLED. CALL OUT TO MOM AND DAD TO UPDATE ON CONDITION- MESSAGES LEFT ON PHONE. 0205- DR. WAITE IN ROOM TO SEE PATIENT. 0211- SECOND AMIODARONE 150MG IV BOLUS STARTED AT THIS TIME PER DR. WAITE. LEVOPHED TITRATED UP IN ATTEMPT TO MAINTAIN SBP >90. 0230- HR 150-170s. BP 74/46. PT CONTINUES TO BE AWAKE AND ALERT. RESPIRATIONS EVEN AND UNLABORED. 0248- MONITOR SHOWS CONVERSION TO NSR, RATE 90s. FAMILY AT BEDSIDE. 0309- PER DR. RAMOS, NEOSYNEPHRINE STARTED AT THIS TIME. WILL ATTEMPT TO TITRATE LEVOPHED DOWN AND OFF. AMIODARONE CONTINUES AT 1MG/MIN. VASOPRESSIN CONTINUES AT 0.04UNITS/MIN. AFTER DISCUSSION WITH FATHER, PT IS NOW DNR PER POL[facility].
[2019-10-07 03:55] LABS: BASOPHILS ABSOLUTE AUTO 0.02 K/mm3 (0.00-0.23); BASOPHILS PERCENT AUTO 0 % (0-2); EOSINOPHILS ABSOLUTE AUTO 0.96 K/mm3 (0.00-0.68); EOSINOPHILS PERCENT AUTO 6 % (0-6); Hematocrit 25.6 % (33.0-51.0); Hemoglobin 8.4 g/dL (11.5-16.0); IMMATURE GRAN ABSOLUTE AUTO 0.39 K/mm3 (0.00-0.10); IMMATURE GRAN PERCENT AUTO 2 % (0-1); LYMPHOCYTES ABSOLUTE AUTO 0.95 K/mm3 (0.84-5.20); LYMPHOCYTES PERCENT AUTO 6 % (21-46); MONOCYTES ABSOLUTE AUTO 1.58 K/mm3 (0.16-1.47); MONOCYTES PERCENT AUTO 10 % (4-13); Mean Corpuscular HGB 33.2 pg (26.0-34.0); Mean Corpuscular HGB Conc 32.8 g/dL (31.5-36.5); Mean Corpuscular Volume 101 fL (80-100); Mean Platelet Volume 9.5 fL (9.1-12.4); NEUTROPHILS ABSOLUTE AUTO 12.11 K/mm3 (1.96-9.15); NEUTROPHILS PERCENT AUTO 76 % (41-73); NRBC ABSOLUTE 0.53 K/mm3 (0.00-0.02); NRBC Auto 3.3 /100 WBC (0.0-0.2); Platelet Count 57 K/mm3 (150-400); RDW Coefficient Variation 22.9 % (11.7-14.2); RDW Standard Deviation 70.6 fL (35.1-46.3); Red Blood Cell Count 2.53 M/mm3 (3.80-5.20); White Blood Cell Count 16.01 K/mm3 (4.00-11.30)
[2019-10-07 04:04] LABS: Source, Urine Catheter
[2019-10-07 04:08] LABS: Blood, Urine 4+ (Neg); Glucose Qualitative, Urine Neg (Neg); Ketones, Urine 1+ (Neg); Leukocyte Esterase, Urine 2+ (Neg); Nitrite, Urine Neg (Neg); Protein, Urine 1+ (Neg); Urobilinogen, Urine NORM (Normal); pH, Urine 6.5 (5.0-8.0)
[2019-10-07 04:10] LABS: Albumin, Blood 2.5 g/dL (3.4-5.0); Anion Gap 9 mmol/L (6-16); Blood Urea Nitrogen 31 mg/dL (8-24); Bun/Creatinine Ratio 17.7 (12.0-20.0); CO2, Blood 17 mmol/L (21-32); Calcium, Blood 8.9 mg/dL (8.5-10.1); Chloride, Blood 107 mmol/L (98-108); Creatinine, Blood 1.75 mg/dL (0.40-1.00); Glomerular Filtration Rate 34 (60-); Glucose, Blood 359 mg/dL (70-99); Magnesium, Blood 2.3 mg/dL (1.6-2.4); Phosphorus, Blood 3.8 mg/dL (2.5-4.9); Potassium, Blood 4.4 mmol/L (3.5-5.5); Sodium, Blood 133 mmol/L (136-145)
[2019-10-07 04:16] LABS: Appearance, Urine Hazy (Clear); Bilirubin, Urine 1+ (Neg); Color, Urine Amber (P-Yellow)
[2019-10-07 04:17] LABS: Bacteria Mod /hpf; Mucus Light (0-Heavy); Squamous Epithelial Cells Few /hpf (Few); White Blood Cells, Urine 25-50 /hpf (0-5); Yeast/Fungi Urine Few /hpf
[2019-10-07 05:39] LABS: Prothrombin Time Results 27.1 Sec (9.7-11.5)
[2019-10-07 05:40] LABS: International Normalized Ratio 2.68
--- NOTE | 2019-10-07 06:24 | NUR ---
SEE OTHER NURSE NOTE FOR CARDIAC EPISODE. AFTER PT RHYTHM RETURNED TO BASELINE PT HAS BEEN CALM WITH PARENTS AT BEDSIDE. PT GIVEN BED BATH AND LINEN CHANGE, AND IS IN PLEASANT MOOD. PT BECAME REORIENTED AFTER EPISODE, AND IS ABLE TO STATE WHERE SHE IS, SITUATION, WHO SHE IS, BUT IS UNABLE TO STATE CURRENT YEAR.
--- NOTE | 2019-10-07 08:00 | NUR ---
INITIAL ASSESSMENT PATIENT ALERT AND ORIENTED EXCEPT TO DATE. PATIENT MORE AWAKE AND ALERT THAN YESTERDAY. PATIENT ASKING MANY QUESTIONS AND VERY INTERACTIVE. PATIENT HAS NO COMPLAINTS OF PAIN. AFEBRILE. DESPATCH CLERK REPORTED THAT PATIENT DID HAVE TMAX OF 100.6 DEGREES FAHRENHEIT ON THEIR SHIFT. SCLERA JAUNDICED. PATIENT SATTING 90% AND GREATER ON RA. LUNGS CLEAR IN UPPER LOBES AND DIMINISHED IN LOWER LOBES. PATIENT IN SR, HR 70S TO 80S. PATIENT ON PRESSORS FOR HYPOTENSION. NEOSYNEPRHINE AT 125 MCG/MINUTE, VASOPRESSIN AT 0.04 UNITS/ MINUTE, AMIODARONE AT 0.5 MG/ MINUTE. SCDS IN PLACE. PATIENT HAS PITTING EDEMA AND ASCITES NOTED. PATIENT HAS DOBHOFF IN PLACE BUT IS ALSO TOLERATING PUREE DIET WELL. TF INFUSING AT 20 MLS/ HOUR WITH 30 ML WATER FLUSH Q4H. ABDOMEN MILDLY DISTENDED, SOFT, WITH HYPERACTIVE BS NOTED. PATIENT HAD 4 TO 5 BMS OVERNIGHT PER DESPATCH CLERK. AKERS IN PLACE DRAINING ORANGE COLORED URINE. SKIN JAUNDICED, SCATTERED BRUISING NOTED. NS TKO. BED LOW, CALL LIGHT IN REACH. WILL CONTINUE TO MONITOR PATIENT FREQUENTLY THROUGHOUT SHIFT.
--- NOTE | 2019-10-07 12:00 | NUR ---
PATIENT RESTING QUIETLY IN BED. PATIENT NAUSEOUS EARLIER BUT NOT COMPLAINING OF NAUSEA AT THIS TIME. PATIENT AFEBRILE. PATIENT IN SR, HR 70S TO 80S. BP STABLE ON PRESSORS. NEOSNYEPHRINE AT 150 MCG/ MINUTE. PICC DRESSING CHANGED. BLOOD SUGAR OF 417; COVERAGE GIVEN. NO OTHER ACUTE CHANGES TO NOTE ON AT THIS TIME. WILL CONTINUE TO MONITOR.
--- NOTE | 2019-10-07 13:24 | NUR ---
DR. RAMOS IN TO SEE PATIENT. INFORMED OF AM TROPONIN OF 2.[address] WAITE WAS INFORMED OF THIS RESULT. INFORMED THAT PATIENT HAS ONLY HAD 17 MLS OF URINE OUT THIS SHIFT. INFORMED THAT PATIENT HAD 4-5 BMS ON SUPERVISOR LEAD BURNING. INFORMED THAT WBCS INCREASING. INFORMED THAT PATIENT HAD TMAX OF 100.6 DEGREES FAHRENHEIT ON SUPERVISOR LEAD BURNING BUT THAT PATIENT HAS BEEN AFEBRILE SINCE BEGINNING OF DAY SHIFT. INFORMED THAT BLOOD SUGAR 417 AND THAT PATIENT GIVEN 18 UNITS HUMULIN R. INFORMED THAT PARENTS AND PATIENT STATES THAT PATIENT NEWLY DIAGNOSED WITH DIABETES IN JULY OF 2019. INFORMED THAT AMIODARONE INFUSING AT 0.5 MG/ MINUTE, VASOPRESSIN AT 0.04 UNITS/ MINUTE AND NEOSYNEPHRINE AT 150 MCG/ MINUTE. INFORMED THAT PATIENT DIET INCREASED TO MECHANICAL SOFT, THIN LIQUIDS AND MEDS WHOLE IN APPLESAUCE THIS AM BY SPEECH THERAPY. DR. ARMOS WOULD LIKE TO KEEP DOBHOFF IN AND TF INFUSING TO PROVIDE ADEQUATE NUTRITION TO PATIENT. NO OTHER ORDERS OR INSTRUCTIONS RECEIVED AT THIS TIME.
--- NOTE | 2019-10-07 15:23 | NUR ---
DR. WAITE IN ROOM TO SPEAK WITH PATIENT AND PARENTS.
--- NOTE | 2019-10-07 15:29 | NUR ---
DR. JENSEN CALLED AND INFORMED OF PATIENT'S UO OUTPUT OF LESS THAN 20 CC FOR THE WHOLE DAY SHIFT. UPDATED ON LABS, PRESSORS, PITTING EDEMA, ETC. ORDERED FOR THIRD DOSE OF ALBUMIN TO BE GIVEN AT 2200 TONIGHT AND IF SBP REMAINS OVER 90, THEN TO ADMINISTER 2 MG BUMEX IV OT. ORDERS PLACED.
[2019-10-07 15:46] LABS: Troponin I 2.34 ng/mL (0.000-0.040)
--- NOTE | 2019-10-07 16:00 | NUR ---
PATIENT NAPPING UPON ENTERING ROOM. MOTHER AT BEDSIDE. PATIENT AFEBRILE. NO COMPLAINTS OF PAIN. O2 OVER 90% ON RA. HR 70S TO 80S. NEOSYNEPHRINE AT 125 MCG/ MINUTE. DENIES NAUSEA. NO OTHER ACUTE CHANGES TO NOTE ON AT THIS TIME. WILL CONTINUE TO MONITOR.
--- NOTE | 2019-10-07 18:07 | NUR ---
DR. RAMOS INFORMED OF BLOOD SUGAR OF 414. STATED SHE WOULD PUT ORDER IN FOR INSULIN DRIP.
--- NOTE | 2019-10-07 18:49 | NUR ---
SHIFT SUMMARY PATIENT REMAINED MOSTLY ALERT AND ORIENTED. PATIENT MORE TIRED IN AFTERNOON THAN MORNING. PATIENT REMAINED WEAK BUT HELPED NURSE WITH REPOSITIONING. PATIENT REMAINED AFEBRILE THIS SHIFT. PATIENT REMAINED SATTING 90% AND GREATER ON RA. PATIENT REMAINED IN SR, HR 70S TO 80S. BP STABLE ON PRESSORS. NEOSYNEPHRINE AT 75 MCG/ MINUTE AT BEGINNING OF SHIFT BUT TITRATED UP TO 150 TO KEEP MAPS 60 AND ABOVE. ABLE TO COME DOWN TO 125 MCG/ MINUTE FOR A WHILE BUT PATIENT IS AGAIN BACK AT 150 MCG/ MINUTE. VASOPRESSIN REMAINED AT 0.04 UNITS/ HOUR AND AMIODARONE AT 0.5 MG/ MINUTE. PO AMIODARONE SCHEDULED TO START AT 0700 IN THE AM. PATIENT CONTINUES TO HAVE PITTING EDEMA. PATIENT HAD NO BMS THIS SHIFT. PRN LACTULOSE GIVEN OT. PATIENT HAD NAUSEA X 3, EMESIS X 1. PATIENT GIVEN PRN ZOFRAN X 2. TF CONTINUED AT GOAL RATE OF 20 MLS/ HOUR WITH 30 ML WATER FLUSH Q4H. PATIENT INCREASED TO MECHANICAL SOFT DIET AND THIN LIQUIDS IN MORNING. PATIENT ATE MOST OF BREAKFAST, SOME OF LUNCH, BUT DID NOT WANT TO EAT DINNER. AKERS DRAINED VERY MINIMAL AMOUNT OF ORANGE COLORED URINE. DR. RAMOS AND DR. JENSEN AWARE OF MINIMAL OUTPUT. DR. JENSEN ORDERED FOR 3RD DOSE OF ALBUMIN TONIGHT AND BUMEX IF SBP REMAINS OVER 90 WITH THE PRESSORS. NO CHANGE TO SKIN. PATIENT ASSISTED WITH REPOSITIONING. BLOOD SUGARS 354 TO 417 TODAY. INSULIN DRIP STARTED AT 2 UNITS/ HOUR. LONG ACTING INSULIN DOSE INCREASED THIS SHIFT. EKG PERFORMED THIS SHIFT PER DR. WAITE. PATIENT CHANGED TO FULL CODE STATUS AFTER DR. WAITE HAD DISCUSSION WITH BOTH PARENTS AND PATIENT. PATIENT HAS NO COMPLAINTS AT THIS TIME. FATHER AT BEDSIDE. BED LOW, CALL LIGHT IN REACH. REPORT WILL BE GIVEN TO ASSUMING ACTUARIAL ASSISTANT NURSE SHORTLY.
--- NOTE | 2019-10-07 22:48 | NUR ---
ASSUMED CARE OF PT AT 1900. PT ALERT AND ORIENTED EXCEPT TO DATE, STATES IT IS YEAR [birth year]. FATHER IS AT BEDSIDE. REPORT RECEIVED FROM DARIN SELBY. I-TRACE PERFORMED, MEDICATIONS LISTED IN FLOWSHEET. PT STILL OOZING THROUGH SCABS, PICC LINE, AND PREVIOUS FEMORAL CENTRAL LINE SITE. EDEMA IS WORSENING, DOCTOR SUNNI AWARE. BUMEX ORDERED.
--- NOTE | 2019-10-08 01:21 | NUR ---
Pt's breathing pattern had changed, reassessed pt's breath sounds. New faint crackles in left upper quad. Doctor Rosie updated, ordered continued monitoring. Pt's o2 sat is still 97% on room air, with 20 rr. However, pt has a forceful exhale.
[2019-10-08 04:12] LABS: BASOPHILS ABSOLUTE AUTO 0.01 K/mm3 (0.00-0.23); BASOPHILS PERCENT AUTO 0 % (0-2); EOSINOPHILS ABSOLUTE AUTO 0.32 K/mm3 (0.00-0.68); EOSINOPHILS PERCENT AUTO 3 % (0-6); Hemoglobin 6.8 g/dL (11.5-16.0); IMMATURE GRAN ABSOLUTE AUTO 0.17 K/mm3 (0.00-0.10); IMMATURE GRAN PERCENT AUTO 2 % (0-1); LYMPHOCYTES ABSOLUTE AUTO 0.82 K/mm3 (0.84-5.20); LYMPHOCYTES PERCENT AUTO 8 % (21-46); MONOCYTES ABSOLUTE AUTO 1.27 K/mm3 (0.16-1.47); MONOCYTES PERCENT AUTO 13 % (4-13); Mean Corpuscular HGB 32.9 pg (26.0-34.0); Mean Corpuscular HGB Conc 30.9 g/dL (31.5-36.5); Mean Platelet Volume 12.7 fL (9.1-12.4); NEUTROPHILS ABSOLUTE AUTO 7.43 K/mm3 (1.96-9.15); NEUTROPHILS PERCENT AUTO 74 % (41-73); NRBC ABSOLUTE 0.27 K/mm3 (0.00-0.02); NRBC Auto 2.7 /100 WBC (0.0-0.2); RDW Coefficient Variation 24.6 % (11.7-14.2); RDW Standard Deviation 79.5 fL (35.1-46.3); Red Blood Cell Count 2.07 M/mm3 (3.80-5.20); White Blood Cell Count 10.02 K/mm3 (4.00-11.30)
[2019-10-08 04:17] LABS: Mean Corpuscular Volume 106 fL (80-100)
[2019-10-08 04:18] LABS: Platelet Count 38 K/mm3 (150-400)
[2019-10-08 04:29] LABS: Albumin, Blood 3.5 g/dL (3.4-5.0); Albumin/Globulin Ratio 1.6 (0.8-1.8); Bilirubin, Total 16.1 mg/dL (0.1-1.0); Bun/Creatinine Ratio 17.7 (12.0-20.0); Calcium, Blood 8.5 mg/dL (8.5-10.1); Creatinine, Blood 2.31 mg/dL (0.40-1.00); Globulin, Blood 2.2 g/dL (2.2-4.0); Magnesium, Blood 2.1 mg/dL (1.6-2.4); Phosphorus, Blood 3.7 mg/dL (2.5-4.9); Potassium, Blood 3.8 mmol/L (3.5-5.5); Total Protein, Blood 5.7 g/dL (6.4-8.2)
[2019-10-08 04:56] LABS: International Normalized Ratio 2.72; Prothrombin Time Results 27.5 Sec (9.7-11.5)
--- NOTE | 2019-10-08 07:40 | NUR ---
ASSUMED CARE: PT RESTING IN BED, DOBHOFF IN PLACE RUNNING AT 20 MLS/HR. PT CURRENTLY NSR, VASOPRESSIN AT ASSIGNED RATE, WILFRIDO AT 145 MCG/MIN WITH SBP IN 90S AT THIS TIME. PT NOTED TO BE EDEMETOUS WITH WEEPING NOTED TO VARIOUS SITES. FAMILY AT BEDSIDE AT THIS TIME.
--- NOTE | 2019-10-08 07:44 | NUR ---
Pt seems more alert and oriented this morning, and has an appetite. Pt able to eat applesauce without nausea, after insulin gtt put on standby. No issues with swallowing. Pt is still soaking through paper chux and navarro pads with edema. Groin site from previous femoral central line was changed 3 times, and fluid continues to pour through. Pt had 2 small loose bowel movements with tiny pieces, bright orange with yellow streaks.
[2019-10-08 10:41] LABS: PCO2 Arterial 24.3 mmHg (35-45); PO2 Arterial 75.1 mmHg (80-100); pH Blood Arterial 7.25 (7.35-7.45)
--- NOTE | 2019-10-08 10:53 | NUR ---
DR JENSEN ORDER STAT ABG. RT CALLED WITH CRITICAL PH OF 7.25. DR JENSEN NOTIFIED. NEW ORDERSE RECIEVED. ALSO ORDERED A ONE TIME OF BUMEX. CLARIFIED THAT THIS WAS A SECOND ONE TIME DOSE, ASIDE FROM THE DOSE TO BE GIVEN WITH BLOOD. CONFIRMED SECOND DOSE.
--- NOTE | 2019-10-08 11:30 | NUR ---
TOLD DR RAMOS THAT AM BLOOD SUGAR WAS IN 80S AND THAT LANTUS DOSE WAS HELD. AFTERNOON CBG WAS 113. DR AGREES WITH HOLDING DOSE AND STATES SHE WILL REVIEW PREVIOUS INSULIN ADMINSTRATION PER DRIP TO DETERMINE WHAT CHANGES TO MAKE TO LANTUS. INSULIN GTT HAS BEEN OFF SINCE 645 AM PER OB/GYN DOCTOR.
--- NOTE | 2019-10-08 15:40 | NUR ---
Pt visit this afternoon. Assisted bedside BAL Lew with personal care and repositioning Pt. Pt's mother is at bedside. Offered therapeutic listening as Pt reports being tired. Asked Pt to elaborate on being tired. Pt states "I don't want to do dialysis". Pt and family report dialysis may need to be considered at some point. Engaged in therapeutic discussion regarding goals of care. Educated Pt on options from maintaning current treatment plan to focusing on comfort. Suggested for Pt to think about her options and discuss further with her family. Encouraged Pt and mother to discuss concerns and fears. Pt's mother reports she wants to respect her wishes and will discuss further. Pt and mother express appreciation of visit. Pt agreeable for continued Palliative Care visits. Spoke with bedside BAL Lew and discussed case. Palliative Care will remain available.
--- NOTE | 2019-10-08 16:40 | NUR ---
PALLIATIVE CARE NURSE SPOKE WITH PT AND PT STATED SHE WAS TIRED AND SAID SHE DID NOT WANT TO DO DIALYSIS AND SAYS SHE WAS DISCUSSING IT WITH HER MOTHER WHO UNDERSTOOD. WHEN THIS RN WAS AT BEDSIDE CHANGING PICC DRESSING, PT AGAIN STATED SHE WAS TIRED AND JUST WANTED TO GO HOME AND THAT SHE DID NOT WANT TO DO DIALYSIS. ENSURED THAT SHE KNEW THAT STOPPING EVERYTHING INCLUDING PRESSORS AND NOT DIALYSIS COULD MEAN SHE WOULD WITH IN A FEW DAYS. PT UNDERSTOOD THIS. SHE STATED SHE HAS BEEN SUFFERING FOR SO LONG, IN PAIN, BEFORE COMING TO THE HOSPITAL AND SHE WANTS TO GO HOME. COMPLETED DRESSING CHANGE AND LEFT PT WITH PARENTS. MOTHER AND FATHER AT BEDSIDE HOLDING PT'S HANDS AT THIS TIME.
--- NOTE | 2019-10-08 17:41 | NUR ---
RN WAS AT BEDSIDE CLEANING ROOM AND PT'S FATHER WAS SITTING IN ROOM, TALKING ON PHONE GIVING UPDATE ABOUT PT'S STATUS. HE STATED THAT HE THOUGHT PT WAS GIVING UP TOO SOON ON NOT DOING DIALYSIS AND THAT HE DID NOT THINK PT WAS COHERENT ENOUGH TO MAKE THESE DECISIONS. PT RESPONDED TO HIM "YES I AM," AND IT APPEARED THAT HER FATHER IGNORED THIS. FATHER THEN STATED OVER PHONE THAT "SOME NURSE" CAME IN WAS TRYING TO TELL HIS DAUGHTER WHAT SHE SHOULD AND SHOULDN'T DO AND IF HE WOULD HAVE BEEN IN THE ROOM HE WOULD NOT HAVE ALLOWED THIS. THIS CONVERSATION MADE THIS RN CONCERNED ABOUT THE ETHICS OF THE PATIENT'S SITUATION. DISCUSSED WITH 3D MODELER AND DR RAMOS WHO STATES, DEPENDING LABS TOMORROW AND PROGRESSION OF CARE, IF DIALYSIS IS DEEMED TO BE THE NEXT STEP THEN ETHICS MAY NEED TO BE INVOLVED TO DETERMINE IF PT IS ABLE TO MAKE OWN DECISIONS VS PARENTS MAKING DECISIONS. ATTEMPTED TO NOTIFY PALLIATIVE CARE. WILL ALERT 3D MODELER TO MAKE NURSES TOMORROW AWARE
[2019-10-08 18:26] LABS: Vancomycin, Trough 47.4 ug/mL (5.0-10.0)
--- NOTE | 2019-10-08 18:42 | NUR ---
SHIFT SUMMARY: PT'S WILFRIDO TITRATED DOWN TO 60MLS/HR. DR RAMOS STATES GOAL WAS MAP OF 60. SBPS IN 80S-90S. TUBE FEED VIA DOBHOFF CONTINUING. PT HAS MULTIPLE AREAS OOZING SEROSANGIUNOUS FLUID. SOME OF THIS DRAINAGE NOTED TO CHUCKS PAD WHICH PT REFUSED HAVING CHANGED AT THIS TIME. REQUESTED TO WAIT UNTIL NEXT CHANGE. DR RAMOS AWARE OF POTENTIAL NEED FOR ETHICS COMMITEE WHICH IS TBD BASED ON LABS AND STATUS IN AM.
--- NOTE | 2019-10-08 19:31 | NUR ---
DURING REPORT, SPOKE WITH DR RAMOS REGARDING PT'S BLOOD SUGARS AND LOW URINE OUTPUT. PT BECAME TACHYCARDIAC IN 170S-200S. DR RAMOS AND NIGHT RN AT BEDSIDE AT THIS TIME.
--- NOTE | 2019-10-08 20:30 | NUR ---
1917- [facility] TO 230. DR. RAMOS CALLED TO ROOM. CHARGE NURSE, JOSH GRANT, TO ROOM. FATHER AT BEDSIDE. MULTIPLE TACTICS TRIED TO BRING HR DOWN: VAGAL MANEUVER, BEARING DOWN, BLOWING INTO SYRINGE, COUGHING, ETC. NO EFFECT ACHIEVED. 1939- 150 AMIO BOLUS STARTED. 1949- AMIO DRIP STARTED. 0.5 MG VERSED GIVEN. DEFIBRILLATED WITH 120 JOULES. NO EFFECT. DEFIBRILLATED WITH 150 J. NO EFFECT. 1958- 0.5 MG VERSED GIVEN. DEFIBRILLATED WITH 120 J. NO EFFECT. 2012- 150 AMIO BOLUS GIVEN. 2016- 2 L NC PLACED. 2020- 0.5 MG VERSED GIVEN. MOTHER ARRIVED TO ROOM. 2023- DEFIBRILLATED WITH [address], HR IN THE 1-TEENS. BP STABLE ON PRESSORS. 2026- SODIUM BICARB INCREASED TO 100 MLS/ HOUR.
--- NOTE | 2019-10-08 20:30 | NUR ---
INITIAL ASSESSMENT PATIENT ALERT AND ORIENTED X 3, LETHARGIC AFTER RECEIVING VERSED FOR DEFIBRILLATION OF A. FIB WITH RVR. PATIENT HAS FLAT AFFECT. SCLERA AND SKIN JAUNDICED. PATIENT AFEBRILE. PATIENT SATTING 90% AND GREATER ON RA. CRACKLES NOTED IN R LUNG LOBES. HARRY CLEAR, LLL DIMINISHED. PATIENT NOW IN ST, HR IN THE 1-TEENS. BP STABLE ON PRESSORS. PATIENT HAS PITTING EDEMA ALL OVER BODY; ASCITES NOTED. EDEMA DRAINING SEROUS FLUID. SCDS IN PLACE. ABDOMEN MILDLY DISTENDED WITH HYPOACTIVE BS. DOBHOFF IN PLACE WITH TF INFUSING AT GOAL RATE OF 20 MLS/ HOUR WITH 30 ML WATER FLUSH Q4H. AKERS IN PLACE, DRAINING ORANGE COLORED URINE. NEOSYNEPHRINE INFUSING AT 200 MCG/ MINUTE, AMIODARONE AT 1 MG/ MINUTE, VASOPRESSIN AT 0.04 UNITS/ MINUTE, NS TKO, SODIUM BICARB AT 100 MLS/ HOUR. BED LOW, CALL LIGHT IN REACH, FAMILY AT BEDSIDE. WILL CONTINUE TO MONITOR PATIENT FREQUENTLY THROUGHOUT SHIFT.
[2019-10-08 20:48] LABS: Magnesium, Blood 2.1 mg/dL (1.6-2.4)
[2019-10-08 21:57] LABS: Hematocrit 23.9 % (33.0-51.0); Hemoglobin 7.6 g/dL (11.5-16.0)
--- NOTE | 2019-10-08 22:10 | NUR ---
2044- PATIENT DISCOVERED TO BE BLEEDING HEAVILY FROM OLD CENTRAL LINE SITE INTO DRESSING THAT WAS IN PLACE. DRESSING REMOVED AND SITE SQUIRTING BLOOD. DRESSING PLACED BACK ON SITE AND DR. RAMOS INFORMED GRABBING SANJEEV DRESSING. MANUAL PRESSURE APPLIED. DR. RAMOS TO ROOM AND CONFIRMED THAT IS ARTERIAL BLOOD. MANUAL PRESSURE CONTINUED TO BE APPLIED ANOTHER NURSE CLEANING UP BLOOD AROUND SITE. 2104- FEMSTOP APPLIED AT 134 MM HG. O2 READING 100% ON R GREAT TOE. R FOOT PULSES 1+ IN STRENGTH. GOOD CAP REFILL. NO BLEEDING FROM R FEM SITE NOTED. 2137- FEMSTOP DECREASED TO 110 MM HG. SITE REMAINS STABLE. R FOOT CAP REFILL, PULSES REMAIN UNCHANGED. 2154- FEMSTOP DECREASED TO 90 MM HG. SITE REMAINS STABLE. R FOOT CAP REFILL, PULSES REMAIN UNCHANGED. 2205- FEMSTOP DECREASED TO 60 MM HG. SITE REMAINS STABLE. R FOOT CAP REFILL AND PULSES REMAIN UNCHANGED.
--- NOTE | 2019-10-09 | NUR ---
PATIENT SLEEPING SOUNDLY UPON ENTERING ROOM. PATIENT AFEBRILE. PATIENT IN ST, HR LOW 100S TO 1-TEENS. BP STABLE ON PRESSORS. NEOSYNEPHRINE AT 120 MCG/ MINUTE. BLOOD SUGAR OF 262; COVERAGE GIVEN. FEM STOP REMAINS IN PLACE. NO OTHER ACUTE CHANGES TO NOTE ON AT THIS TIME. WILL CONTINUE TO MONITOR.
--- NOTE | 2019-10-09 00:20 | NUR ---
ATTEMPTED TO DEFLATE FEMSTOP SLOWLY FROM 60 MM HG. SITE STARTED TO BLEED AT 40 MM HG. FEMSTOP INFLATED BACK UP UNTIL NO BLEEDING. FEMSTOP BACK AT 60 MM HG. O2 SENSOR REMAINS IN PLACE. NO HEMATOMA NOTED. DR. RAMOS INFORMED.
--- NOTE | 2019-10-09 00:59 | NUR ---
PATIENT'S SKIN GIVEN BREAK FROM FEMSTOP. MANUAL PRESSURE HELD WITH SANJEEV PAD FOR 20 MINUTES BY CHARGE NURSE WHILE PRIMARY NURSE AT BEDSIDE. FEMSTOP REAPPLIED WITH PRESSURE AT 20 MM HG TO STOP BLEEDING. NO HEMATOMA NOTED. PULSES IN R FOOT PALPABLE, [address] WILL CONTINUE TO MONITOR.
--- NOTE | 2019-10-09 01:47 | NUR ---
PRESSURE IN FEMSTOP DECREASED TO 10 MM HG. SITE REMAINS STABLE. PULSES REMAIN IN R FOOT AND O2 SENSING READING GOOD 02 LEVELS. WILL CONTINUE TO MONITOR.
--- NOTE | 2019-10-09 02:30 | NUR ---
FEMSTOP DEFLATED TO ZERO; REMAINS IN PLACE. NO BLEEDING NOTED AT THIS TIME. PULSES REMAIN PALPABLE.
--- NOTE | 2019-10-09 04:00 | NUR ---
PATIENT AFEBRILE. NO COMPLAINTS OF PAIN. PATIENT IN SR, HR 70S TO 80S. BP STABLE ON PRESSORS. AMIODARINE AT 0.5 MG/ MINUTE, NEOSYNEPHRINE AT 75 MCG/ MINUTE, VASOPRESSIN AT 0.04 UNITS/ MINUTE, SODIUM BICARB AT 100 MLS/ HOUR. FEMSTOP REMAINS IN PLACE; IS NOT INFLATED. SANJEEV IN PLACE. SLIGHT SEROSANGUINEOUS FLUID DRAINING BY R FEM SITE. NO BLEEDING OR HEMATOMA NOTED. PULSES REMAIN PALPABLE TO R FOOT, CAP REFILL LESS THAN 3 SECONDS, AND GOOD O2 READING. FAMILY AT BEDSIDE. NO COMPLAINTS OF PAIN AT THIS TIME.
[2019-10-09 04:28] LABS: Base Excess Venous -15.4 mmol/L; Bicarbonate Venous 13.3 mmol/L (24.0-30.0); PCO2 Venous 30.4 mmHg (38-42); PO2 Venous 121 mmHg (38-42); pH Blood Venous 7.22 (7.34-7.37)
[2019-10-09 04:28] LABS: BASOPHILS ABSOLUTE AUTO 0.01 K/mm3 (0.00-0.23); BASOPHILS PERCENT AUTO 0 % (0-2); EOSINOPHILS ABSOLUTE AUTO 0.08 K/mm3 (0.00-0.68); EOSINOPHILS PERCENT AUTO 1 % (0-6); Hematocrit 23.2 % (33.0-51.0); Hemoglobin 7.5 g/dL (11.5-16.0); IMMATURE GRAN ABSOLUTE AUTO 0.27 K/mm3 (0.00-0.10); IMMATURE GRAN PERCENT AUTO 2 % (0-1); LYMPHOCYTES ABSOLUTE AUTO 0.43 K/mm3 (0.84-5.20); LYMPHOCYTES PERCENT AUTO 3 % (21-46); MONOCYTES ABSOLUTE AUTO 2.37 K/mm3 (0.16-1.47); MONOCYTES PERCENT AUTO 16 % (4-13); Mean Corpuscular HGB 33.8 pg (26.0-34.0); Mean Corpuscular HGB Conc 32.3 g/dL (31.5-36.5); Mean Corpuscular Volume 105 fL (80-100); Mean Platelet Volume 11.4 fL (9.1-12.4); NEUTROPHILS ABSOLUTE AUTO 12.01 K/mm3 (1.96-9.15); NEUTROPHILS PERCENT AUTO 79 % (41-73); NRBC ABSOLUTE 0.23 K/mm3 (0.00-0.02); NRBC Auto 1.5 /100 WBC (0.0-0.2); RDW Coefficient Variation 25.6 % (11.7-14.2); RDW Standard Deviation 74.7 fL (35.1-46.3); Red Blood Cell Count 2.22 M/mm3 (3.80-5.20); White Blood Cell Count 15.17 K/mm3 (4.00-11.30)
[2019-10-09 04:30] LABS: Platelet Count 45 K/mm3 (150-400)
[2019-10-09 04:38] LABS: Magnesium, Blood 1.9 mg/dL (1.6-2.4)
[2019-10-09 04:39] LABS: Anion Gap 12 mmol/L (6-16); Blood Urea Nitrogen 46 mg/dL (8-24); Bun/Creatinine Ratio 16.7 (12.0-20.0); CO2, Blood 14 mmol/L (21-32); Calcium, Blood 8.6 mg/dL (8.5-10.1); Chloride, Blood 106 mmol/L (98-108); Creatinine, Blood 2.75 mg/dL (0.40-1.00); Glomerular Filtration Rate 20 (60-); Glucose, Blood 336 mg/dL (70-99); Phosphorus, Blood 5.6 mg/dL (2.5-4.9); Potassium, Blood 4.6 mmol/L (3.5-5.5); Sodium, Blood 132 mmol/L (136-145); Vancomycin, Random 39.9 ug/mL
--- NOTE | 2019-10-09 06:45 | NUR ---
0512- PATIENT BACK INTO A.FIB WITH RVR. PATIENT DNR WITH NO CARDIOVERSION OF CONVERSATION WITH DR. RAMOS, PATIENT AND FAMILY. PATIENT INSTRUCTED TO BEAR DOWN, BLOW INTO SYRINGE, COUGH, ETC WITH NO EFFECT. PRESSORS BEING TITRATED TO KEEP MAPS 65 AND GREATER. 0630- DR. WAITE IN ROOM, SPEAKING WITH PATIENT AND FATHER. PATIENT STATED SHE "WAS DONE". DR. WAITE INFORMED ABOUT COMFORT CARE AND WHAT IT ENTAILS. PATIENT VOICED THAT THIS IS WHAT SHE WANTED. FATHER AGREED AND SAID "WHATEVER SHE WANTS". WILL CALL TO INITIATE COMFORT CARE PER PATIENT WISHES.
--- NOTE | 2019-10-09 07:10 | NUR ---
SHIFT SUMMARY PATIENT REMAINED ALERT AND ORIENTED X 3, AFEBRILE. PATIENT GIVEN PRN FENTANYL FOR COMPLAINTS OF STOMACH PAIN. PATIENT REMAINED SATTING 90% AND GREATER ON RA. PATIENT INTO A.FIB WITH RVR IMMEDIATELY AFTER COMING ONTO SHIFT LAST NIGHT. PATIENT GIVEN TO AMIO BOLUSES, AMIO DRIP STARTED, AND PATIENT SHOCKED 4 TIMES BEFORE CONVERTING TO ST. DISCUSSION WAS HAD BETWEEN DR. RAMOS, PATIENT, AND THE MOTHER AND FATHER AND DECISION WAS MADE TO MAKE THE PATIENT DNR WITH NO CARDIOVERSION IF THE PATIENT WERE TO GO INTO A.FIB WITH RVR AGAIN. PATIENT SR TO ST UNTIL THIS MORNING SHORTLY AFTER 0500 WHEN PATIENT CONVERTED BACK INTO A.FIB WITH RVR. ATTEMPTS MADE TO VALSALVA TO CONVERT RHYTHM BACK BUT NO EFFECT. NEOSYNEPHRINE INCREASED AND LEVOPHED HAD TO BE STARTED FOR GOAL MAPS OF 65 AND GREATER. PATIENT REMAINED WITH NONPITTING EDEMA TO MOST OF BODY. PATIENT HAD ONE MEDIUM, SOFT, ORANGE BM THIS SHIFT. TF REMAINED AT GOAL RATE OF 20 MLS/ HOUR WITH 30 ML WATER FLUSH Q4H. AKERS DRAINED 165 MLS OF ORANGE COLORED URINE. EDEMA CONTINUED TO DRAIN SEROSANGUINEOUS FLUID IN PLACES. OLD CENTRAL LINE SITE IN R FEMORAL FOUND TO BE SQUIRTING BLOOD OUT AFTER FIRST A.FIB WITH RVR EVENT. SITE WOULD NOT STOP BLEEDING WITH MANUAL PRESSURE SO FEMSTOP APPLIED. FEMSTOP PRESSURE APPLIED MOST OF THE NIGHT. CURRENTLY [address] SANJEEV DRESSINGS ARE IN PLACE AND FEMSTOP IN PLACE BUT NO PRESSURE ADDED. CURRENTLY, NEOSYNEPHRINE AT 200 MCG/ MINUTE, VASOPRESSIN AT 0.04 UNITS/ MINUTE, AMIODARONE AT 0.5 MG/ MINUTE, SODIUM BICARB AT 125 MLS/ HOUR AND LEVOPHED AT 12 MCG/ MINUTE. BLOD SUGARS 262 TO 348. DES COVERAGE GIVEN. DR. JENSEN IN TO SEE PATIENT THIS MORNING; ORDERS RECEIVED FOR ALBUMIN AND LASIX. REPORT GIVEN TO ONCOMING DAY SHIFT NURSE IN ROOM, IN FRONT OF PATIENT AND FATHER. DISCUSSION HAD ABOUT PATIENT'S CURRENT DNR STATUS AND WISHES. PATIENT AND FATHER STATED THAT PATIENT WOULD LIKE TO BE COMFORT CARE AT THIS TIME. DAY SHIFT NURSE TO CALL DOCTOR NOW.
--- NOTE | 2019-10-09 07:45 | NUR ---
ASSUMED CARE: RECEIVED BEDSIDE REPORT FROM BAL WEBSTER. PT'S FATHER AT BEDSIDE AND PT STATES SHE WANTS DRIPS OFF AND JUST TO BE COMFORTABLE. FATHER STATES IT IS HER DECISION. PT VERBALIZED UNDERSTANDING THAT REMOVING MEDICATION MAY MAKE PASSING SOONER RATHER THAN LATER. CALL TO DR VENTURA WHO CAME IN AND DISCUSSED SITUATION WITH PT AND FATHER AND CALLED PT'S MOTHER. COMFORT CARE ORDERS ENTERED. EXPLAINED TO FAMILY THAT MEDICATIONS WILL BE TITRATED OFF SLOWLY. MOTHER STATES WE ARE WAITING FOR PT'S SISTER AND BROTHER TO ARRIVE.
--- NOTE | 2019-10-09 09:30 | NUR ---
DOBHOFF REMOVED. FAMILY REQUESTED FOR DRIPS TO CONTINUE UNTIL FURTHER FAMILY MEMBERS ARRIVE. DR RAMOS MADE AWARE.
--- NOTE | 2019-10-09 10:10 | NUR ---
STEPPED INTO ROOM TO CHECK ON DRIPS. DISCUSSED WITH FAMILY THAT NONE OF THE DRIPS WILL BE DISCONTINUED UNTIL THEY SAY SO. PT'S MOTHER SAID THAT IS UP TO HER FATHER. FATHER HAD HEAD RESTING ON BED NEXT TO PATIENT. INFORMED FAMILY THAT IT DOES NOT HAVE TO BE DECIDED NOW
--- NOTE | 2019-10-09 11:12 | NUR ---
Pt resting in bed with her eyes closed. Many family members at bedside. Offered therapeutic listening as Pt's mother reports family is honoring Pt's wishes. Offered emotional support and continued therapeutic listening. Family agreeable for Palliative Care F/U later today. Spoke with Dr Nicholson and bedside BAL Lew. Discussed case and plan. All supportive medications D/C except pressors. Pressors will be titrated down once Tray Room Worker arrives. Palliative Care will remain available.
--- NOTE | 2019-10-09 11:18 | NUR ---
PALLIATIVE CARE NURSE CAME TO SEE PT. DR RAMOS SPOKE WITH THEM AND UPDATED ON SITUATION. PALLIATIVE CARE CALLED STACEY WITH [employer] WHO IS AT BEDSIDE AT THIS TIME. WILFRIDO OFF AT THIS TIME DUE TO BAG EMPTY.
--- NOTE | 2019-10-09 12:08 | NUR ---
WATER POLLUTION SPECIALIST ASKED FAMILY WHEN THEY WANTED US TO DISCONTINUE MEDICATION. FAMILY STEPPED OUT OF ROOM AND DISCUSSED WITH THIS RN AND WATER POLLUTION SPECIALIST. EDUCATED ON WHAT MEDICATIONS WERE FOR AND WHAT THEY WERE CURRENTLY DOING. PT'S FATHER MISUNDERSTOOD AND THOUGHT WE ALREADY DISCONTINUED MEDS BUT REITERATED THAT ONLY MED OFF WAS WILFRIDO DUE TO NEEDING NEW BAG AND ASKED IF HE WANTED ME TO RESTART IT. HE SAID NO. FAMILY STATES THAT WHEN MEDS RUN OUT TO JUST LEAVE THEM OFF. CURRENTLY LEVOPHED, AMIODORONE AND VASOPRESSIN RUNNING. PT RESTING QUIETLY, TACHYPNEA AT TIMES. FAMILY AT BEDSIDE.
--- NOTE | 2019-10-09 12:49 | NUR ---
VASOPRESSIN DISCONNECTED DUE TO BAG RUNNING EMPTY. FAMILY REMAINS AT BEDSIDE. PT APPEARS COMFORTABLE
--- NOTE | 2019-10-09 13:14 | NUR ---
[employer] [facility] care visit conducted. Patient is resting quietly in bed with several family members present with several family members quietly weeping. I talk with patient's father, Bambi, mostly and learn about patient's medical history, history of addiction and wishes for medical treatment at this time. Bambi breaks down several times during our conversations in connection to the love for his daughter, his leticia and the places that he fells he failed. I listen empathically, highlight the good he has done, help reassign blame, discuss issues of theology and leticia and provide pastoral general counsel and guidance. I also help Bambi work through his medical questions by reconnecting him to his RN Louann. Bambi agrees to discontinue medical treatment at this time and provide comfort measures only. Bambi again blames himself and so we continue to relook at this idea and reach for other perspectives which seem to bring him comfort at least for the moment. I will continue to remain available.
--- NOTE | 2019-10-09 14:35 | NUR ---
Therapeutic F/U visit. Family at bedside. Offered therapeutic listening. Pt's mother reports difficulty for family to let go. Validated concerns and offered emotional support. Family expresses appreciation of visit. Spoke with bedside BAL Lew and discussed case. Pressors still going per family request to allow bags to emptying before stopping. Palliative Care will remain available.
--- NOTE | 2019-10-09 15:41 | NUR ---
Spiritual care note: Met with pt's mom outside of room. She was tearful, but appropriate. She states she is concerned about her , as "he is not taking this well." Pt's room is filled with quiet and supportive family/friends. Rashmi is non-responsive and appears peaceful. Prayer quilt placed over pt. Gentle comfort/prison classification counselor provided. Manager Council services will remain available.
--- NOTE | 2019-10-09 15:48 | NUR ---
LEVOPHED DISCONTINUED AT THIS TIME. AMIODORONE STILL RUNNING. DISCUSSED MULTIPLE TIMES WITH FAMILY TO DETERMINE IF THEY WANT US TO DC AMIODORONE WELL BUT PT'S PARENTS CONTINUE TO SAY LET IT KEEP RUNNING UNTIL BAG GOES EMPTY.
--- NOTE | 2019-10-09 18:38 | NUR ---
SHIFT SUMMARY: PT'S HR REMAINS AFIB RVR IN 170S. AMIO DRIP REMAINING PER FAMILY REQUEST. FAMILY AT BEDSIDE. PT APPEARS COMFORTABLE. NO FURTHER NEEDS OR CONCERNS AT THIS TIME.
--- NOTE | 2019-10-09 23:18 | NUR ---
REPORT RECIEVED FROM KECIA (FIBER PRODUCT CUTTING MACHINE OPERATOR) AT 2306 AND AWAITING PT T/F TO ROOM 313.
--- NOTE | 2019-10-10 04:35 | NUR ---
SUMMARY: PT ON COMFORT CARE W/SUPPORTIVE FAMILY AT BEDSIDE. SHE REMAINS OBTUNDED, NONVERBAL AND UNRESPONSIVE. HER BREATHING HAS BECOME CYCLIC W/APNEIC PAUSES AT APPROX 6-12 RESP/MIN. LS ARE COARSE W/CRACKLES T/O ALL LOBES BUT NO S/S AIR HUNGER OR DYSPNEA. PT IS GROSSLY EDEMETOUS AND WEEPING NOTED T/O ENTIRE BODY, DRY CHUCKS REPLACED PRN. OOZING OBSERVED TO HER PRIOR CENTRAL AND PICC LINE SITES. AKERS IS PATENT/DRAINING BUT UO IS SCANT. SHE HAS APPEARED COMFORTABLE SINCE ARRIVE TO FLOOR AND HASN'T REQUIRED PRN MEDS. GRADUAL SHIFTING OF PT ATTENDED TO PER FAMILY'S SATISFACTION. WCTM/REPORT TO DAY RN.
--- NOTE | 2019-10-10 11:19 | NUR ---
Patient's father, Orv, and step mother are bedside and I talk at length with them about their spiritual journey, their careers and the thoughts and emotions they are having today. They share personal information and their struggles. I listen empathically, normalize their experience, reinforce helpful responses and ways of processing and provide pastoral careers counsellor and prayer. The family respond well and show signs of being comforted. They thank and bless me for my time and care. I will continue to remain available to patient and family.
--- NOTE | 2019-10-10 13:50 | NUR ---
Comfort Care Visit: Pt resting in bed and is non responsive. Pt appears comfortable and peaceful with no S/S of distress. Family at bedside and offered therapeutic listening. Educated family on actively dying stage and encouraged speaking with Pt. Family expresses appreciation of visit. No other concerns reported at this time. Spoke with Pt's bedside RN and discussed case. Palliative Care will remain available.
--- NOTE | 2019-10-10 22:28 | NUR ---
PATIENT ON COMFORT CARE SLEEPING IN BED. PARENT PRESENT AT BEDSIDE AND REPORT THEY WILL STAY OVERNIGHT. PATIENT PRIMARY DOCTOR IN FOR A VISIT. CALL LIGHT IN REACH.
--- NOTE | 2019-10-11 04:58 | NUR ---
SHIFT SUMMARY PATIENT ON COMFORT CARE. NO S/SX OF PAIN/DISTRESS. NON-VERBAL/UNRESPONSIVE. PARENTS PRESENT AND STAYED THE NIGHT IN ROOM. PATIENT'S PRIMARY CARE PROVIDER STOPPED IN TO SEE PATIENT AND FAMILY. PICC AVE INTACT. AKERS PATENT AND DRAINING WITH MINIMAL OUTPUT. CALL LIGHT IN REACH. BED IN LOWEST POSITION. WILL CONTINUE TO MONITOR UNTIL DAY SHIFT NURSE ASSUMES CARE.
--- NOTE | 2019-10-11 12:03 | NUR ---
PT PASSED AT 1154. CONFIRMED WITH CHARGE NURSE. PT'S FAMILY AT BEDSIDE. JAZMINE IN THE ROOM WITH FAMILY.
--- NOTE | 2019-10-11 14:28 | NUR ---
Spiritual care visit conducted. As patient has recently , I sitting with Orv and his and loving talk them through their many questions and provide a calming presence and prayer. I also at times need to distract Orv from going in negative directions as he is having a tendency to reherse self blaming talk. I let patient's RN know what home they would like and continue to sit with them until they are stabilized. The family thank me over and over for the time and care.
== END 2019-10-11 11:54 | DRG 871 ==
LOC: ER 09:13 → ICUE 11:36 → ICUW 11:36 → ICUE 12:10 → MEDS 10-09 23:52
PROVIDERS: Emergency Medicine; Internal Medicine Cardiovascular Disease; Internal Medicine Critical Care Medicine; Internal Medicine Nephrology; Internal Medicine Pulmonary Disease; ADMIT Internal Medicine
PROC: 5A2204Z Restoration of Cardiac Rhythm, Single (ICD-10-PCS; principal; 2019-10-02)
PROC: 3E033XZ Introduction of Vasopressor into Peripheral Vein, Percutaneous Approach (ICD-10-PCS; 2019-10-03)
PROC: 30283B1 Transfusion of Nonautologous 4-Factor Prothrombin Complex Concentrate into Vein, Percutaneous Approach (ICD-10-PCS; 2019-10-04)
PROC: 02HV33Z Insertion of Infusion Device into Superior Vena Cava, Percutaneous Approach (ICD-10-PCS; 2019-10-05)
DX: A41.51 Sepsis due to Escherichia coli [E. coli] (principal); G92 Toxic encephalopathy; N17.0 Acute kidney failure with tubular necrosis; R65.21 Severe sepsis with septic shock; E87.2 Acidosis; E72.20 Disorder of urea cycle metabolism, unspecified; I42.9 Cardiomyopathy, unspecified; N39.0 Urinary tract infection, site not specified; E87.1 Hypo-osmolality and hyponatremia; N25.81 Secondary hyperparathyroidism of renal origin; K70.30 Alcoholic cirrhosis of liver without ascites; Z51.5 Encounter for palliative care; Z79.4 Long term (current) use of insulin; E11.22 Type 2 diabetes mellitus with diabetic chronic kidney disease; E11.649 Type 2 diabetes mellitus with hypoglycemia without coma; T68.XXXA Hypothermia, initial encounter; I27.20 Pulmonary hypertension, unspecified; E11.65 Type 2 diabetes mellitus with hyperglycemia; I48.0 Paroxysmal atrial fibrillation; D69.6 Thrombocytopenia, unspecified; E88.09 Other disorders of plasma-protein metabolism, not elsewhere classified; E83.39 Other disorders of phosphorus metabolism; K72.90 Hepatic failure, unspecified without coma; N18.3 Chronic kidney disease, stage 3 (moderate)
CPT/HCPCS: 36415; 36430; 36556; 36569; 36600; 51702; 70450; 71045; 76770; 80048; 80053; 80069; 80202; 81001; 82140; 82270; 82330; 82550; 82553; 82803; 82947; 83605; 83690; 83735; 84100; 84132; 84300; 84439; 84443; 84450; 84460; 84484; 85014; 85018; 85025; 85610; 85730; 86850; 86900; 86901; 86923; 87040; 87077; 87086; 87186; 92526; 92610; 92960; 93005; 93010; 93306; 93308; 93321; 96365-59; 96375-59; 97166; 97530; 99291-25; 99292; A9270-GY; C1751; C9113; J0153; J0282; J0696; J0881; J1170; J1644; J1720; J1815; J2060; J2250; J2370; J2405; J2543; J3010; J3370; J3411; J3475; J7030; J7040; J7050; J7060; J7070; P9016; P9041; P9046